=== PATIENT | male | born 2000 ===

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

== ENCOUNTER 2023-02-06 05:39 | Emergency (ER) | payer OTHER, SELFPAY ==
--- NOTE | ~2023-02-06 | XR_ITS ---
EXAMINATION: XR CHEST CLINICAL INFORMATION: Shortness of breath COMPARISON: 01/05/2021 TECHNIQUE: 2 views of the chest were obtained. FINDINGS: Normal symmetric lung volumes. No parenchymal consolidation. No pleural effusion. No pneumothorax. Cardiomediastinal silhouette and pulmonary vascularity are within normal limits. No acute osseous abnormalities. XR/XR chest 2V IMPRESSION: No acute findings.
[2023-02-06 06:05] VITALS: BP 127/70; PULSE 101; RESP 12; TEMP 36.8; O2SAT 98; BMI 23.0
[2023-02-06 06:08] LABS: MANUAL DIFF FLAG NO
[2023-02-06 06:09] LABS: Basophils Absolute Auto 0.1 X10*3/uL (0.0-0.2); Basophils Percent Auto 0.5 % (0-2); Eosinophils Percent Auto 0.3 % (0-4); Hematocrit 45.9 % (42.0-52.0); Hemoglobin 15.8 g/dl (14.0-18.0); Imm Gran Abs Auto 0.07 X10*3/uL (0.00-0.03); Imm Gran Pct Auto 0.6 % (0.0-0.4); Lymphocytes Absolute Auto 1.4 X10*3/uL (1.2-4.9); Lymphocytes Percent Auto 10.8 % (20-40); Mean Corpuscular HGB Conc 34.4 g/dl (31.0-36.0); Mean Corpuscular Hemoglobin 28.2 pg (27.0-33.0); Mean Corpuscular Volume 81.8 fL (80.0-98.0); Mean Platelet Volume 9.4 fL (9.4-12.4); Monocytes Absolute Auto 0.6 X10*3/uL (0.1-1.2); Monocytes Percent Auto 5.1 % (2-11); Neutrophils Absolute Auto 10.4 x10*3/uL (2.0-8.3); Neutrophils Percent Auto 82.7 % (45-73); Platelet Count 384 X10*3/uL (160-400); Red Blood Count 5.61 X10*6/uL (4.60-5.80); Red Cell Distribution Width 12.4 % (11.0-16.0); White Blood Count 12.6 X10*3/uL (4.8-10.8)
--- OUTSIDE RECORDS SUMMARY | 2023-02-06 06:17 | XMS_ITS | Continuity of Care Document ---
:2000 Author Organization [facility] Pediatric Surgery Address [address] [address] [place] [address]- Care Team Providers Name Role Phone Todd HIDALGO, Nena Sharma Primary Care Physician Encounter [facility] [place] Date(s): 05/15/22 - 05/22/22 [facility] Pediatric Surgery [address] [place] [address] [address] [place], [place] [address] Attending Physician: Jerzy FRYE, Oren Montalvo Referring Physician: Alecia Morales MD Allergies, Adverse Reactions, Alerts No Known Allergies Medications clindamycin 1% topical swab 1 applicator, Topically, 2 times a day, apply a thin film to affected area after washing, # 60 each,3 Refills, Maintenance, 05/15/22 16:35:00 EDT, [facility], Partial fill upon patient request if the prescription is for a schedule II op... Start Date: 05/15/22 Stop Date: 09/12/22 Status: OrderedMultivitamin Daily, 0 Refills, Maintenance, 08/15/17 9:16:59 Start Date: 08/15/17 Status: OrderedQvar 40 mcg/inh inhalation aerosol Inhalation, 2 times a day, Refills 0, Maintenance, 11/28/17 9:30:08 Start Date: 11/28/17 Status: OrderedSingulair By Mouth, Daily, 0 Refills, Maintenance, 11/28/17 9:30:18 Start Date: 11/28/17 Status: OrderedVitamin K1 0 Refills, Maintenance, 05/20/18 14:49:23 EDT Start Date: 05/20/18 Status: Ordered Vital Signs Most recent to oldest [Reference Range]: 1 Height 164 cm (05/15/22 3:42 PM) Weight 68.8 kg (05/15/22 3:42 PM) Body Mass Index [18.5-24.99] 25.58 *H* (05/15/22 3:42 PM) Dry Weight 68.8 kg (05/15/22 3:42 PM) Weight Obtained Via Standing scale (05/15/22 3:42 PM) Dry Weight Obtained Via Standing scale (05/15/22 3:42 PM) Social History Social History Type Response Smoking Status Never smoker; Tobacco user i n household: No entered on: 08/15/17 Sex
--- OUTSIDE RECORDS SUMMARY | 2023-02-06 06:17 | XMS_ITS | Continuity of Care Document ---
:2000 Author Organization [facility] Pediatric Surgery Address [address] [facility] [address] [place] [address]- Care Team Providers Name Role Phone Nena Valente Primary Care Physician Encounter [facility] Date(s): 05/15/22 - 06/14/22 [facility] Pediatric Surgery [address] [facility] [address] [place] [address]- Attending Physician: Dahiana Hill Admitting Physician: AdmtrDahiana Referring Physician: Admtr Ar8 Allergies, Adverse Reactions, Alerts No Known Allergies [...] 14:49:23 EDT Start Date: 05/20/18 Status: Ordered Social History Social History Type Response Smoking Status Never smoker; Tobacco user i n household: No entered on: 08/15/17 Sex
[2023-02-06 06:24] LABS: Alanine Aminotransferase 43 U/L (0-40); Alkaline Phosphatase 104 U/L (39-117); Anion Gap 14 (12-20); Aspartate Amino Transferase 30 U/L (5-37); Bilirubin Total 0.8 mg/dL (0.0-1.0); Blood Urea Nitrogen 10 mg/dL (9-16); Calcium 9.7 mg/dL (8.4-10.2); Carbon Dioxide 24 mmol/L (22-29); Chloride 106 mmol/L (96-108); Creatinine Clr Calc Pharmacy 101.9; Estimated Glomerular Filt Rate > 60; Glucose Random 131 mg/dL (60-115); Potassium 4.3 mmol/L (3.3-5.1); Sodium 140 mmol/L (135-145); Total Protein 8.4 g/dL (6.5-8.0)
[2023-02-06 06:53] LABS: Influenza A PCR NEGATIVE (Negative); Influenza B PCR NEGATIVE (Negative); Resp Syncy Virus RNA Qual PCR NEGATIVE (Negative); SARS COV2 PCR INHOUSE NEGATIVE (Negative)
--- NOTE | 2023-02-06 07:13 | ED.ASTHMA ---
HPI - Asthma General Chief Complaint: Asthma Stated Complaint: Asthma Time Seen by Provider: 02/06/23 06:53 Source: patient and family (Mother) Mode of arrival: ambulatory Limitations: no limitations History of Present Illness HPI Narrative: 22-year-old male with history of asthma came in for 2 days of wheezing and coughing with shortness of breath. Patient took10 mg tab tablet of prednisone left over at home but patient feels partial improvement. Patient is around animals that the patient think is allergic to them. No CP, no hypoxia. Related Data Previous Rx's Medication Instructions Recorded acetaminophen 325 mg tablet 650 mg PO Q6H PRN fever or pain 09/14/20 (Tylenol) #10 tabs albuterol sulfate 2.5 mg/3 mL 2.5 mg (3 mL) inhalation Q4-6H PRN 01/05/21 (0.083 %) solution for nebulization shortness of breath or wheezing #75 mL montelukast 10 mg tablet 10 mg PO DAILY 30 days #30 tabs 01/09/22 (Singulair) cyclobenzaprine 5 mg tablet 5 mg PO Q8H PRN muscle spasm #10 04/17/22 tabs naproxen 375 mg tablet 375 mg PO BID 7 days #14 tabs 04/17/22 albuterol sulfate 90 mcg/actuation 2 puff PO Q4-6H PRN for wheezing 11/28/22 aerosol inhaler (ProAir HFA) #8.5 grams fluticasone propionate 110 2 puff inhalation DAILY 30 days 11/28/22 mcg/actuation HFA aerosol inhaler #12 grams albuterol sulfate 90 mcg/actuation 2 puff inhalation Q4-6H PRN 11/29/22 aerosol inhaler (Ventolin HFA) shortness of breath or wheezing #6.7 grams albuterol sulfate 90 mcg/actuation 2 puff inhalation Q6H PRN 02/06/23 aerosol inhaler shortness of breath or wheezing #8.5 grams prednisone 20 mg tablet 20 mg PO BID #10 tabs 02/06/23 Allergies Allergy/AdvReac Type Severity Reaction Status Date / Time No Known Allergies [NKA] Allergy Unknown NA Verified 04/17/22 10:55 Review of Systems Review of Systems: All other systems are reviewed and are negative Constitutional: Reports as per HPI and Reports no additional constitutional complaints Eyes: Reports as per HPI and Reports no additional eye complaints Reports system reviewed and no additional complaints, except as documented Cardiovascular: Reports as per HPI and Reports no additional cardiovascular complaints Respiratory: Reports as per HPI and Reports no additional respiratory complaints Gastrointestinal: Reports as per HPI and Reports no additional gastrointestinal complaints Genitourinary: Reports no additional female genitourinary complaints Musculoskeletal: Reports no additional musculoskeletal complaints Skin/Breast: Reports system reviewed and no additional complaints, except as docu Psychiatric: Reports no additional psychiatric complaints Endocrine: Reports no additional endocrine complaints Hematologic/Lymphatic: Reports no additional hematologic/lymphatic complaints Allergic/Immunologic: Reports no additional allergic/immunologic complaints Reports system reviewed and no additional complaints, except as documented and Reports Abnormal speech present [facility] Past Medical History Medical History Asthma Lab test positive for detection of COVID-19 virus Tourette syndrome Surgical History No pertinent past surgical history Family History Family History Father Asthma GERD (gastroesophageal reflux disease) Mother Asthma Anxiety Social History Social History Household Members: Family Advance Directives: No Physical Exam Vital Signs: Vital Signs: Last Vital Signs Temp 98 F 02/06/23 07:51 Pulse 144 H 02/06/23 07:51 Resp 20 02/06/23 07:51 BP 137/69 02/06/23 07:51 Pulse Ox 100 02/06/23 07:51 O2 Del Method 02/06/23 07:51 BMI result Body Mass Index 23.0 Vital signs have been reviewed as appeared to be correct. Blood pressure normal. Heart rate normal. Respiration rate normal. Temperature normal. Oxygen saturation normal. Appearance: Alert. Oriented X3. No acute distress. Head: Normal external exam. Normocephalic. Atraumatic. No Aviles signs noted. No raccoon eyes noted Eyes: PERRLA. EOMI. Conjunctiva and sclera normal. Eyelids normal. ENT: TM's Normal. Pharynx normal. Uvula midline. Moist mucous membranes. No trismus noted. No drooling noted. No muffled voice noted. Neck: Normal inspection. Neck supple. FROM. No adenopathy. Thyroid Normal. No meningeal signs. No neck mass noted. CVS: Normal heart rate and rhythm. Heart sound normal. No murmurs noted. Pulses normal throughout. Respiratory: No respiratory distress. Painless inspiration. Breath sounds normal. No wheezes/rales/rhonchi noted. Chest nontender. No accessory muscle usage noted or decreased air movement noted. Abdomen: Soft and nontender. Bowel sounds normal in all 4 quadrants. No distention noted. No organomegaly noted. No visible injury noted. Back: No CVA tenderness. Full range of motion noted. Skin: Skin warm and dry. Normal skin color. Normal skin turgor. No rashes/lesions/lacerations noted. Extremities: No lower extremity edema. Extremities exhibit normal range of motion. Extremities nontender. Neuro: Oriented X 3. Cranial nerve exam: II-XII are grossly intact No motor deficit. No sensory deficit. Reflexes normal. Course Course Course Narrative: Acute asthma exacerbation. Start the patient on bronchodilator and prednisone for 5 days, patient was instructed to observe himself if the symptoms is worsening after exposure to animal at home to avoid exposing to the side animal patient also was instructed to follow up with tracer clerk as an outpatient. Medications Administered Discontinued Medications Generic Name Dose Route Start Last Admin Trade Name Freq PRN Reason Stop Dose Admin Albuterol Sulfate 7.5 mg 02/06/23 07:11 02/06/23 07:31 Albuterol Sulfate (0.083%) 2.5 Mg/3 Ml Vial.Neb INHALE 02/06/23 07:12 7.5 mg ONCE ONE Administration Prednisone 40 mg 02/06/23 07:11 02/06/23 07:31 Prednisone 20 Mg Tablet PO 02/06/23 07:12 40 mg ONCE ONE Administration Medical Decision Making Differential Diagnosis Differential Diagnoses: The differential diagnosis associated with the presentation includes (Acute asthma exacerbation, pneumonia, pneumothorax, viral upper respiratory infection.) Lab Data MDM Lab Attestation statement: I reviewed the patient's lab results. 02/06/23 06:02 02/06/23 06:02 Labs: Lab Results 02/06/23 02/06/23 02/06/23 Range/Units 06:02 06:02 06:12 WBC 12.6 H (4.8-10.8) X10*3/uL RBC 5.61 (4.60-5.80) X10*6/uL Hgb 15.8 (14.0-18.0) g/dl Hct 45.9 (42.0-52.0) % MCV 81.8 (80.0-98.0) fL MCH 28.2 (27.0-33.0) pg MCHC 34.4 (31.0-36.0) g/dl RDW 12.4 (11.0-16.0) % Plt Count 384 (160-400) X10*3/uL MPV 9.4 (9.4-12.4) fL Immature Gran % (Auto) 0.6 H (0.0-0.4) % Neut % (Auto) 82.7 H (45-73) % Lymph % (Auto) 10.8 L (20-40) % [place] % (Auto) 5.1 (2-11) % Eos % (Auto) 0.3 (0-4) % Baso % (Auto) 0.5 (0-2) % Lymph # (Auto) 1.4 (1.2-4.9) X10*3/uL [place] # (Auto) 0.6 (0.1-1.2) X10*3/uL Eos # (Auto) 0.0 (0.0-0.4) X10*3/uL Baso # (Auto) 0.1 (0.0-0.2) X10*3/uL Abs Immat Gran (auto) 0.07 H (0.00-0.03) X10*3/uL Absolute Neuts (auto) 10.4 H (2.0-8.3) x10*3/uL Absolute Nucleated RBC 0.000 (0.0-0.012) X10*3/uL Nucleated RBC % (auto) 0.0 (0.0-0.2) /100WBC Sodium 140 (135-145) mmol/L Potassium 4.3 (3.3-5.1) mmol/L Chloride 106 (96-108) mmol/L Carbon Dioxide 24 (22-29) mmol/L Anion Gap 14 (12-20) BUN 10 (9-16) mg/dL Creatinine 0.93 (0.5-1.4) mg/dL Estim Creat Clear Calc 101.9 Estimated GFR > 60 Random Glucose 131 H (60-115) mg/dL Calcium 9.7 (8.4-10.2) mg/dL Total Bilirubin 0.8 (0.0-1.0) mg/dL AST 30 (5-37) U/L ALT 43 H (0-40) U/L Alkaline Phosphatase 104 (39-117) U/L Total Protein 8.4 H (6.5-8.0) g/dL Albumin 5.0 (3.5-5.0) g/dL Influenza Type A (PCR) NEGATIVE (Negative) Influenza Type B (PCR) NEGATIVE (Negative) RSV RNA Qual (PCR) NEGATIVE (Negative) SARS-CoV-2 RNA (RT-PCR) NEGATIVE (Negative) Independent Interpretation I performed an independent interpretation of an: Plain X-Ray (Chest: No acute intrathoracic pathology.) Radiology Impression Discussion of test interpretation with radiology: I have reviewed the radiologist's reading. Discharge Plan Discharge Clinical Impression: Mild intermittent asthma with (acute) exacerbation Patient Disposition: Home, Self-Care Instructions: Asthma (ED) Prescriptions: New albuterol sulfate 90 mcg/actuation HFA aerosol inhaler 2 puff inhalation Q6H PRN (Reason: shortness of breath or wheezing) Qty: 8.5 0RF prednisone 20 mg tablet 20 mg PO BID Qty: 10 0RF No Action montelukast [Singulair] 10 mg tablet 10 mg PO DAILY 30 Days Qty: 30 3RF albuterol sulfate [ProAir HFA] 90 mcg/actuation HFA aerosol inhaler 2 puff PO Q4-6H PRN (Reason: for wheezing) Qty: 8.5 0RF Rx Instructions: Inhale 2 puffs every 4 to 6 hrs as needed for wheezing or shortness of breath fluticasone propionate 110 mcg/actuation HFA aerosol inhaler 2 puff inhalation DAILY 30 Days Qty: 12 5RF albuterol sulfate [Ventolin HFA] 90 mcg/actuation HFA aerosol inhaler 2 puff inhalation Q4-6H PRN (Reason: shortness of breath or wheezing) Qty: 6.7 0RF acetaminophen [Tylenol] 325 mg tablet 650 mg PO Q6H PRN (Reason: fever or pain) Qty: 10 0RF albuterol sulfate 2.5 mg /3 mL (0.083 %) solution for nebulization 2.5 mg inhalation Q4-6H PRN (Reason: shortness of breath or wheezing) Qty: 75 0RF naproxen 375 mg tablet 375 mg PO BID 7 Days Qty: 14 0RF cyclobenzaprine 5 mg tablet 5 mg PO Q8H PRN (Reason: muscle spasm) Qty: 10 0RF Rx Instructions: can take 2 tabs if needed for effect. Max dose 10 mg q8 hrs Stand Alone Forms: Work/School Release
[2023-02-06] MEDS: Albuterol Sulfate (0.083%) 2.5 MG/3 ML VIAL.NEB 7.5 MG INHALE (07:31)
[2023-02-06] MEDS: predniSONE 20 MG TABLET 40 MG PO (07:31)
[2023-02-06 07:51] VITALS: BP 137/69; PULSE 144; RESP 20; TEMP 36.6; O2SAT 100
--- NOTE | 2023-02-06 07:54 | MHC.EDTECH ---
PT RECEIVING BREATHING TREATMENT WHEN HEART RATE INCREASED TO 170 . PT BECAME ANXIOUS , REFUSED TO COMPLETE TREATMENT. PT NAUSEOUS VOMITED SMALL AMOUNT OF THICK CLEAR SECRETION. AND RN AWARE. RESPIRATORY AT BEDSIDE.
[2023-02-06 09:23] VITALS: BP 123/66; PULSE 125; RESP 16; TEMP 37.4; O2SAT 98
== END 2023-02-06 09:28 | disposition home or self-care (01) ==
PROVIDERS: Emergency Provider Emergency Medicine
DX: J45.21 Mild intermittent asthma with (acute) exacerbation (principal); Z20.822 Contact with and (suspected) exposure to COVID-19; Z20.828 Contact with and (suspected) exposure to other viral communicable diseases
CPT/HCPCS: 0241U; 36415; 71046; 80053; 85025; 99284

== ENCOUNTER → 2023-05-28 13:42 | Outpatient (BNVA) | payer OTHER, SELFPAY | PROVIDERS: PCP Nurse Practitioner Family; Visit Provider Internal Medicine | DX: Z77.21 Contact with and (suspected) exposure to potentially hazardous body fluids (principal) | CPT/HCPCS: 36415; 84450; 84460; 86706; 86803; 87389; 99203 ==

== ENCOUNTER 2023-06-08 05:57 | Outpatient (REF) | payer OTHER, SELFPAY ==
[2023-06-08 07:23] LABS: Hemoglobin 16.4 g/dl (14.0-18.0); Mean Corpuscular HGB Conc 34.2 g/dl (31.0-36.0); Mean Corpuscular Hemoglobin 28.4 pg (27.0-33.0); Platelet Count 384 X10*3/uL (160-400); Red Blood Count 5.78 X10*6/uL (4.60-5.80); Red Cell Distribution Width 12.9 % (11.0-16.0); White Blood Count 9.4 X10*3/uL (4.8-10.8)
[2023-06-08 07:55] LABS: Alanine Aminotransferase 33 U/L (0-40); Albumin Level 4.8 g/dL (3.5-5.0); Alkaline Phosphatase 83 U/L (39-117); Anion Gap 16 (12-20); Aspartate Amino Transferase 27 U/L (5-37); Bilirubin Total 1.6 mg/dL (0.0-1.0); Blood Urea Nitrogen 14 mg/dL (9-16); Calcium 10.4 mg/dL (8.4-10.2); Carbon Dioxide 22 mmol/L (22-29); Chloride 106 mmol/L (96-108); Cholesterol 147 mg/dL; Estimated Glomerular Filt Rate > 60; Glucose Fasting 82 mg/dL (60-99); HDL Cholesterol 48 mg/dL; LDL Cholesterol Calculated 90 mg/dl; Sodium 140 mmol/L (135-145); Triglycerides 48 mg/dL
[2023-06-08 08:07] LABS: TSH reflex Free T4 1.98 uIU/mL (0.32-4.0)
== END 2023-06-08 05:58 | disposition home or self-care (01) ==
LOC: HO.LAB 05:57
PROVIDERS: PCP Nurse Practitioner Family; Visit Provider Nurse Practitioner Family
DX: Z00.00 Encounter for general adult medical examination without abnormal findings (principal)
CPT/HCPCS: 36415; 80053; 80061; 84443; 85027

== ENCOUNTER 2023-06-08 13:14 | Outpatient (AMB) | payer OTHER, SELFPAY ==
--- NOTE | 2023-06-08 13:21 | MHC.PC.OV ---
Vital Signs 06/08/23 13:22 Height 5 ft 3 in Weight 158 lb 4 oz BMI 28.0 BP 122/72 Blood Pressure Location Lt brachial Position Sitting Respiration 16 Pulse 81 Pulse Source Pulse Oximeter Temp 98.5 F Temp Source Oral Pulse Oximetry (%) 98 Oxygen Delivery Method Room Air Intake Visit Reasons: Lightheadedness, FU on asthma Intake Note: Patient is here for lightheadedness and asthma. Allergies seafood Allergy (Mild, Verified 06/08/23 13:45) mikld tongue swelling, numbness nuts Allergy (Mild, Uncoded 06/08/23 13:45) mild tongue swelling, numbness Medication List - Last Reconciled 06/08/23 by Jozef Salgado CNP acetaminophen (Tylenol) 650 mg (2 x 325 mg) PO Q6H PRN albuterol sulfate 2.5 mg (3 mL) inhalation Q4-6H PRN albuterol sulfate 90 mcg/actuation 2 puffs inhalation Q6H PRN albuterol sulfate 90 mcg/actuation (Ventolin HFA) 2 puffs inhalation Q4-6H PRN fluticasone propionate 110 mcg/actuation 2 puffs inhalation DAILY 30 days montelukast (Singulair) 10 mg PO DAILY 30 days Tobacco use date assessed: 06/08/23 Dental Screening Dental Screen Date: 06/08/23 Did you have a dental visit in the last 12 months?: No Did you have a dental problem in the last 6 months where you did not have access to dental care?: No Was dental information given to patient?: No HPI HPI Comments History of Present Illness Details 22-year-old male presents for asthma follow-up. He c/o lightheadedness. He notes that his symptoms have been ongoing for the past 5 days. His symptoms are intermittent, independent of position changes. His symptoms worsen at home and improve at work, when his is talking with his coworkers. He states that his symptoms maybe attributed to anxiety. He admits to feeling anxious recently. He denies depression. He denies headaches or head trauma. He reports control asthma symptoms. 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 1. Little interest or pleasure in doing things: several days 2. Feeling down, depressed, or hopeless: several days 3. Trouble falling or staying asleep, or sleeping too much: not at all 4. Feeling tired or having little energy: several days 5. Poor appetite or overeating: not at all 6. Feeling bad about yourself - or that you are a failure or have let yourself or your family down: not at all 7. Trouble concentrating on things, such as reading the newspaper or watching television: several days 8. Moving or speaking so slowly that other people could have noticed. Or the opposite - being so fidgety or restless that you have been moving around a lot more than usual: not at all 9. Thoughts that you would be better off or of hurting yourself in some way: not at all Total score: 4 Depression Screening Interpretation: Negative Source: Developed by Drs. Marciano Yoder, Henrietta Brooks, Héctor Stinson and colleagues, with an educational jayme from [employer]. DEIRDRE-7 AMB Questionnaire DEIRDRE-7 Feeling nervous, anxious, or on edge: 1 = Several days Not being able to stop or control worryin = Several days Worrying too much about different things: 1 = Several days Trouble relaxin = Several days Being so restless that it is hard to sit still: 1 = Several days Becoming easily annoyed or irritable: 1 = Several days Feeling afraid as if something awful might happen: 1 = Several days Total DEIRDRE-7 score (0-4 normal; 5-9 mild; 10-14 moderate; 15-21 severe): 7 Source: Developed by Drs. Marciano Yoder, Henrietta Brooks, Héctor Stinson and colleagues, with an educational jayme from [employer]. ACT Questionnaire In the past 4 weeks, how much of the time did your asthma keep you from getting as much done at work, school or at home?: None of the time During the past 4 weeks, how often have you had shortness of breath?: Not at all During the past 4 weeks, how often did your asthma symptoms wake you up at night or earlier than usual in the morning?: Not at all During the past 4 weeks, how often have you had to use your rescue inhaler or nebulizer medication?: Once a week or less How would you rate your asthma control during the past 4 weeks?: Completely controlled Score: 24 Review of Systems Const Details: Const Denies chills, Denies fatigue, Denies fever(s), Denies headache(s) and Denies weakness ENT Denies dizziness and Denies headache(s) Card Denies chest pain, Denies lightheadedness, Denies dyspnea and Denies other (Palpitations) Resp Denies cough, Denies dyspnea, Denies wheezing and Denies other ( shortness of breath) GI Denies abdominal pain, Denies melena, Denies hematochezia, Denies change in bowel habits, Denies dyspepsia and Denies nausea Denies hematuria and Denies dysuria Musc Denies abnormal gait, Denies myalgias, Denies arthralgias, Denies numbness and Denies tingling Skin/Breast Denies rash, Denies unusual bruising and Denies wounds Neuro Denies abnormal gait, Denies dizziness, Denies headache(s), Denies memory loss, Denies numbness, Denies Sensory deficit (Neuro), Denies tingling and Denies weakness Psych Reports anxiety and Denies depression Endo Denies cold intolerance, Denies fatigue, Denies heat intolerance, Denies polydipsia and Denies polyuria Aller/Immun Denies wheezing Physical exam (Primary Care) Vital Signs: Last Vital Signs Temp 98.5 F 06/08/23 13:22 Pulse 81 06/08/23 13:22 Resp 16 06/08/23 13:22 BP 122/72 06/08/23 13:22 Pulse Ox 98 06/08/23 13:22 Oxygen Delivery Method Room Air 06/08/23 13:22 BMI result Body Mass Index 28.0 Tobacco/Smoking Status: Tobacco use Status Tobacco use date assessed 06/08/23 06/08/23 13:29 Patient Tobacco Use Status Former Tobacco user 06/08/23 13:22 e-Cigarette/Vaping Use Never Used 06/08/23 13:22 Depression Screening Interpretation: Negative Const Other: General: no acute distress and well developed Nutritional Appearance: well nourished Orientation/consciousness: patient oriented x3 HENMT Head: Yes normocephalic and Yes atraumatic Eyes General: appearance normal, both eyes and all related structures Pupils: Equal, round and reactive pupils present EOM: EOMs intact bilaterally Resp Effort & Inspection: normal respiratory effort Auscultation: clear to auscultation bilaterally Cardio Rate: regular rate Rhythm: regular rhythm Heart sounds: S1 normal heart sound present, S2 normal heart sound present, no gallops, no murmurs and no rubs GI Palpation (GI): No Abdominal aortic bruit present, Soft to palpation, nontender, No hepatosplenomegaly present and No Rebound tenderness present Auscultation: normal bowel sounds General: Yes no CVA tenderness Back/Spine/Pelvis Back: no CVA tenderness Cervical Spine: cervical ROM normal and No Cervical spine tenderness Thoracic/Lumbar Spine: thoraco-lumbar ROM normal, No pain with thoraco-lumbar ROM, No thoracic spinal tenderness and No lumbar spinal tenderness Extrem General: Yes normal to inspection, No edema and No calf tenderness Skin General: warm and dry. Normal skin color. Normal skin turgor Lesions: no lesions Rashes: no rashes Trauma: no lacerations or abrasions Wounds: no wounds Nails: normal Neuro General: patient oriented x3, gait normal and no focal neuro deficit Cranial nerves: Yes Equal, round and reactive pupils present Cognition (Neuro): normal cognition Gait exam (Neuro): Normal gait present Motor exam (neuro): 5/5 motor strength present throughout Sensory Exam: No Sensory deficit (Neuro) Psych Appearance: grossly normal Affect: normal affect Attitude: cooperative Thought process: Normal thought process present Assessment and Plan Assessment & Plan (1) Anxiety: Code(s): F41.9 - Anxiety disorder, unspecified Plan: Normal physical exam No focal neuro deficit DEIRDRE-7 score revealed mild anxiety. PHQ-9 score is normal He symptoms may be attributed to anxiety Hydroxyzine ordered. Take as prescribed Routine exercise encouraged Recent blood work reviewed with patient Follow-up in 1-2 months or return sooner with new or worsening symptoms Verbalized understanding and agreed with treatment plan. (2) Asthma: Comment: Singulair daily, ProAir prn, albuterol updraft prn. Code(s): J45.909 - Unspecified asthma, uncomplicated Qualifiers: Asthma severity: mild Asthma persistence: intermittent Plan: ACT score is 24 and indicates well controlled asthma Continue use asthma inhalers as prescribed Follow-up with symptoms or concerns Verbalized understanding and agreed with treatment plan Medications: New hydroxyzine HCl 25 mg PO BID PRN 60 tabs 1RF anxety Coding Level of Care Code Est Pt Level 3 (10511) Diagnoses Anxiety F41.9 Asthma J45.909 Asthma severity: mild Asthma persistence: intermittent Time Spent (min) 25
[2023-06-08 13:22] VITALS: BP 122/72; PULSE 81; RESP 16; TEMP 36.9; O2SAT 98; BMI 28.0
== END 2023-06-08 14:02 | disposition home or self-care (01) ==
PROVIDERS: PCP Nurse Practitioner Family; Visit Provider Nurse Practitioner Family
DX: F41.9 Anxiety disorder, unspecified (principal); J45.909 Unspecified asthma, uncomplicated
CPT/HCPCS: 99213

== ENCOUNTER 2023-06-09 13:05 | Emergency (ER) | payer OTHER, SELFPAY ==
[2023-06-09] VITALS (7 sets, daily range): BP systolic 121–141; BP diastolic 62–82; PULSE 83–107; RESP 16–18; TEMP 36.3–37; O2SAT 96–98; BMI 26.6
--- NOTE | 2023-06-09 13:14 | ED_ITS ---
HPI - Dizziness General Chief Complaint: Dizziness Stated Complaint: lightheaded 5days Time Seen by Provider: 06/09/23 19:48 Source: patient, RN notes reviewed and old records reviewed Mode of arrival: ambulatory Limitations: no limitations History of Present Illness HPI Narrative: 22-year-old male who denies any past medical history presents for evaluation of intermittent dizziness. Patient reports that his symptoms started around 4:00 a.m. last Sunday, approximately 1 week ago He reports ?sometimes it feels like the room is spinning, sometimes it feels like I am floating. ? He states that he has had intermittent headaches as well He saw his primary doctor yesterday who did labs, all of which were reassuring He reports that his tend to be worse when he is standing Patient states that currently he is not dizzy and does not have a headache Denies any viral symptoms. He denies any history of vertigo He has no other complaints or concerns at this time Related Data Previous Rx's Medication Instructions Recorded acetaminophen 325 mg tablet 650 mg PO Q6H PRN fever or pain 09/14/20 (Tylenol) #10 tabs albuterol sulfate 2.5 mg/3 mL 2.5 mg (3 mL) inhalation Q4-6H PRN 01/05/21 (0.083 %) solution for nebulization shortness of breath or wheezing #75 mL montelukast 10 mg tablet 10 mg PO DAILY 30 days #30 tabs 01/09/22 (Singulair) fluticasone propionate 110 2 puff inhalation DAILY 30 days 11/28/22 mcg/actuation HFA aerosol inhaler #12 grams albuterol sulfate 90 mcg/actuation 2 puff inhalation Q4-6H PRN 11/29/22 aerosol inhaler (Ventolin HFA) shortness of breath or wheezing #6.7 grams albuterol sulfate 90 mcg/actuation 2 puff inhalation Q6H PRN 03/16/23 aerosol inhaler shortness of breath or wheezing #8.5 grams hydroxyzine HCl 25 mg tablet 25 mg PO BID PRN anxety #60 tabs 06/08/23 Allergies Allergy/AdvReac Type Severity Reaction Status Date / Time seafood Allergy Mild mikld Verified 06/09/23 13:14 tongue swelling, numbness nuts Allergy Mild mild Uncoded 06/08/23 13:45 tongue swelling, numbness Review of Systems Constitutional: Constitutional: Reports as per HPI, Denies chills, Denies fatigue, Denies fever(s) and Reports headache(s) ENT: Reports headache(s) Cardiovascular: Cardiovascular: Denies chest pain and Denies dyspnea Respiratory: Respiratory: Denies cough and Denies dyspnea Gastrointestinal: Gastrointestinal: Denies abdominal pain, Denies constipation and Denies vomiting Genitourinary: Genitourinary: Denies difficulty urinating and Denies dysuria Neurologic: Reports headache(s) and Denies focal weakness Endocrine: Endocrine: Denies fatigue PMFSH Past Medical History Medical History Asthma Lab test positive for detection of COVID-19 virus Tourette syndrome Surgical History No pertinent past surgical history Family History Family History Father Asthma GERD (gastroesophageal reflux disease) Mother Asthma Anxiety Social History Social History Household Members: Family Housing: House Alcohol intake: never Patient Tobacco Use Status: Former Tobacco user Smoked in Last 30 Days: No e-Cigarette/Vaping Use: Never Used Use of substances other than those prescribed or required for medical reasons: No Advance Directives: No Advance Directives Information Provided: Yes service: No Current occupational status: employed 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 Cognitive needs: No Hearing needs: No Vision needs: No Physical Exam Vital Signs: Vital Signs: Last Vital Signs Temp 98.2 F 06/09/23 20:30 Pulse 89 06/09/23 20:30 Resp 16 06/09/23 20:30 BP 135/67 06/09/23 20:30 Pulse Ox 98 06/09/23 20:30 O2 Del Method Room Air 06/09/23 20:30 BMI result Body Mass Index 26.6 Const: General: healthy appearing, comfortable, no acute distress, alert and awake Nutritional Appearance: well nourished Orientation/consciousness: patient oriented x3 HEENT: Head: Yes normocephalic and Yes atraumatic Ears: external ears normal, TM's normal bilaterally and EAC's normal Eyes: Eyelids: Yes eyelids normal Conjunctivae: conjunctivae normal Sclerae: sclerae normal Corneas: corneas normal Pupils: Equal, round and reactive pupils present EOM: EOMs intact bilaterally Neck: Neck: Yes full ROM Resp: Effort & Inspection: normal respiratory effort, able to speak in complete sentences and not labored Cardio: Rate: regular rate Rhythm: regular rhythm GI: Inspection: No distended Palpation (GI): Soft to palpation, not firm, nontender, no guarding and not rigid Auscultation: normoactive bowel sounds Skin: General skin exam: no rashes or lesions noted and elasticity normal Neuro: General: patient oriented x3 Cranial nerves: Yes Equal, round and reactive pupils present and Yes Bilaterally intact EOM present Cognition (Neuro): normal cognition Course Course Course Narrative: RME - 22 yo male with history of asthma, anxiety, optic neuritis who presents to the ER for evaluation of lightheadedness for the last 5 days. He states his symptoms come and go. [place] like he was going to pass out 3x time week. Poor historian. Mom reports daily headaches. Seen by his PCP yesterday and had basic labs which were largely unremarkable. Plan: EKG for presyncope, orthostatic VS. no need to repeat labs today Reevaluation(s) Reevaluation #1: Patient reports no significant change after meclizine reports that he feels well. He is stable for discharge Time: 20:44 Medications Administered Discontinued Medications Generic Name Dose Route Start Last Admin Trade Name Freq PRN Reason Stop Dose Admin Meclizine HCl 25 mg 06/09/23 20:14 06/09/23 20:20 Meclizine Hcl 25 Mg Tablet PO 06/09/23 20:15 25 mg ONCE ONE Administration Medical Decision Making Medical Decision Making [facility] Narrative: 22-year-old male presents for evaluation of lightheadedness/dizziness. His exam is reassuring. He has no objective findings. Currently he is also asymptomatic. Patient is not orthostatic. He had labs that were done yesterday morning. Hemoglobin of 16.4 with hematocrit of 48.0. A white count of 9.4. The no significant electrolyte abnormalities. Patient was given a dose of meclizine. Differential Diagnosis Differential Diagnoses: The differential diagnosis associated with the presentation includes (VertigoDizzinessLightheadedness Meniere's disease Orthostasis labyrinthitis) Discharge Plan Discharge Clinical Impression: Dizziness Patient Disposition: Home, Self-Care Instructions: Dizziness (ED) Additional Instructions: Your blood work from yesterday was reassuring. Your neuro exam was also reassuring. You are not dehydrated. You EKG did not show any concerning abnormalities Follow-up with your primary doctor and your home administrator as discussed Prescriptions: No Action montelukast [Singulair] 10 mg tablet 10 mg PO DAILY 30 Days Qty: 30 3RF fluticasone propionate 110 mcg/actuation HFA aerosol inhaler 2 puff inhalation DAILY 30 Days Qty: 12 5RF albuterol sulfate [Ventolin HFA] 90 mcg/actuation HFA aerosol inhaler 2 puff inhalation Q4-6H PRN (Reason: shortness of breath or wheezing) Qty: 6.7 0RF albuterol sulfate 90 mcg/actuation HFA aerosol inhaler 2 puff inhalation Q6H PRN (Reason: shortness of breath or wheezing) Qty: 8.5 3RF acetaminophen [Tylenol] 325 mg tablet 650 mg PO Q6H PRN (Reason: fever or pain) Qty: 10 0RF albuterol sulfate 2.5 mg /3 mL (0.083 %) solution for nebulization 2.5 mg inhalation Q4-6H PRN (Reason: shortness of breath or wheezing) Qty: 75 0RF hydroxyzine HCl 25 mg tablet 25 mg PO BID PRN (Reason: anxety) Qty: 60 1RF
--- NOTE | 2023-06-09 13:18 | ECG_ITS ---
Test Reason : PRESYNCOPE Blood Pressure : / mmHG Vent. Rate : 104 BPM Atrial Rate : 104 BPM P-R Int : 130 ms QRS Dur : 100 ms QT Int : 334 ms P-R-T Axes : 063 054 -12 degrees QTc Int : 439 ms Sinus tachycardia Nonspecific T wave abnormality Abnormal ECG No previous ECGs available Referred By: Tierney Chow Electronically Signed By:ERVIN ALEJANDRE MD
[2023-06-09] MEDS: Meclizine HCl 25 MG TABLET PO (20:20)
== END 2023-06-09 20:54 | disposition home or self-care (01) ==
PROVIDERS: Emergency Provider Emergency Medicine; PCP Nurse Practitioner Family
DX: R42 Dizziness and giddiness (principal)
CPT/HCPCS: 93005; 99283; 99285

== ENCOUNTER → 2023-06-09 13:18 | Outpatient (BNV) | payer OTHER, SELFPAY | PROVIDERS: Emergency Provider Emergency Medicine; PCP Nurse Practitioner Family; Visit Provider Internal Medicine Cardiovascular Disease | DX: R00.0 Tachycardia, unspecified (principal) | CPT/HCPCS: 93010 ==

== ENCOUNTER → 2023-07-26 15:05 | Outpatient (BNVA) | payer OTHER, SELFPAY | PROVIDERS: PCP Nurse Practitioner Family | DX: Z77.21 Contact with and (suspected) exposure to potentially hazardous body fluids (principal) | CPT/HCPCS: 99211 ==

== ENCOUNTER 2023-08-27 12:38 | Outpatient (AMB) | payer OTHER, SELFPAY ==
--- NOTE | 2023-08-27 12:46 | A.OFFPC_ITS ---
Vital Signs 08/27/23 12:49 Height 5 ft 3 in Weight 139 lb 6 oz BMI 24.7 BP 110/68 Blood Pressure Location Lt brachial Position Sitting Pulse 91 Pulse Source Pulse Oximeter Pulse Oximetry (%) 98 Oxygen Delivery Method Room Air Intake Visit Reasons: transfer of care from [facility] Intake Note: Patient is here today for transfer of care from [facility]. 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: No Bowling Pin Refinisher: Not Required per policy Accompanied by: Self / Same As Patient Allergies seafood Allergy (Mild, Verified 08/27/23 13:08) mikld tongue swelling, numbness nuts Allergy (Mild, Uncoded 08/27/23 12:49) mild tongue swelling, numbness Medication List - Last Reconciled 08/27/23 by ELIZABETH Copeland acetaminophen (Tylenol) 650 mg (2 x 325 mg) PO Q6H PRN albuterol sulfate 2.5 mg (3 mL) inhalation Q4-6H PRN albuterol sulfate 90 mcg/actuation 2 puffs inhalation Q6H PRN fluticasone propionate 110 mcg/actuation 2 puffs inhalation DAILY 30 days hydroxyzine HCl 25 mg PO BID PRN Tobacco use date assessed: 08/27/23 Dental Screening Dental Screen Date: 08/27/23 Did you have a dental visit in the last 12 months?: Yes Did you have a dental problem in the last 6 months where you did not have access to dental care?: No Was dental information given to patient?: Patient has dentist HPI HPI Comments History of Present Illness Details 22-year-old male past history significan t for anxiety and asthma. Patient presents today for transfer care from Dr. Lion. Patient currently albuterol inhaler as needed, singular 10 mg daily as as fluticasone 2 puffs daily. Patient taking hydroxyzine b.i.d. as needed for anxiety, patient reports he does not use the hydroxyzine. offered referral to counseling however patient declines. Patient reports chest pain like pressure throughout the chest sometimes left sided sometimes on the right side. Patient denies any nausea,vomitting or sweating associated witht he CP but reports It feels like his heart is working harder than it should denies palpitations, dizziness. Of not was in ER in May for lightheadedness x [address], non-specific Twave abnormality Date reports chest pain pressure or pain throughout the chest intermittently last upper left or right chest. fells like heart is working harder. Doesn't feel like his anxiety. No nausea, vomitting. Of note patient also reports has history of Tourette syndrome and that he does have a tick for where he has a head motion that he does which causes him to tighten up his chest muscles. Chest discomfort likely musculoskeletal related. Patient advise can take [id number] ibuprofen as needed for pain. EKG in completed in office showed normal sinus rhythm, no changes noted from previous EKG obtained in May. Dr. Daigle reviewed EKG with this MARKETING ASSISTANT. [facility] Medical History Lab test positive for detection of COVID-19 virus Asthma Tourette syndrome Surgical History No pertinent past surgical history Family History Father Asthma GERD (gastroesophageal reflux disease) Mother Asthma Anxiety Other Mental health disorder Social History (Updated 08/27/23 @ 13:11 by ELIZABETH Copeland) Household Members: Family Housing: House Alcohol intake: current Alcohol intake frequency: holidays/special occasions only Patient Tobacco Use Status: Never used Tobacco e-Cigarette/Vaping Use: Never Used Second Hand Smoke Exposure: No Use of substances other than those prescribed or required for medical reasons: No service: No Current occupational status: employed 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 Marciano Yoder, Henrietta Brooks, Héctor Stinson and colleagues, with an educational jayme from [employer]. Review of Systems Const Denies chills, Denies fatigue, Denies fever(s) and Denies poor appetite Eyes Denies no additional complaints ENT Reports Normal hearing present Card Denies chest pain, Denies syncope, Denies rapid heart rate and Denies dyspnea Resp Denies cough and Denies dyspnea GI Denies change in stool character, Denies constipation, Denies diarrhea, Denies nausea and Denies vomiting Denies dysuria, Denies urinary frequency and Denies urinary urgency Neuro Reports Normal hearing present, Denies confusion and Denies syncope Psych Denies confusion Endo Denies fatigue Physical exam (Primary Care) Vital Signs: Last Vital Signs Pulse 91 08/27/23 12:49 BP 110/68 08/27/23 12:49 Pulse Ox 98 08/27/23 12:49 Oxygen Delivery Method Room Air 08/27/23 12:49 BMI result Body Mass Index 24.7 Tobacco/Smoking Status: Tobacco use Status Tobacco use date assessed 08/27/23 08/27/23 12:56 Patient Tobacco Use Status Never used Tobacco 08/27/23 13:11 e-Cigarette/Vaping Use Never Used 08/27/23 13:11 Thrive Assessment: Date of Thrive Assessment Date Thrive assessed 02/12/23 08/27/23 12:56 Const General: No confusion Orientation/consciousness: No confusion HENMT Head: Yes normocephalic and Yes atraumatic Eyes Conjunctivae: conjunctivae normal Chest Chest palpation & inspection: normal inspection of the chest Resp Effort & Inspection: normal respiratory effort Auscultation: clear to auscultation bilaterally, no crackles, no rhonchi and no wheezes Cardio Rate: regular rate Rhythm: regular rhythm Heart sounds: S1 normal heart sound present and S2 normal heart sound present Peripheral pulses: dorsalis pedis present GI Inspection: Yes normal to inspection General: Yes no CVA tenderness Back/Spine/Pelvis Back: no CVA tenderness Neuro General: No confusion Cranial nerves: Yes Normal hearing present Extrem General: No edema Office Procedures Flu Questionnaire Does the patient have a severe egg allergy?: No Does the patient have severe life threatening allergies?: No Does the patient have a fever or illness today?: No Has the patient ever had Guillain-[place] Syndrome?: No Has the patient ever had any past reaction to a flu shot?: No Immunizations flu vacc [id number] 6mos up(PF) 60 mcg(15 mcgx4)/0.5 mL IM syringe Performing Provider: ELIZABETH oCpeland Performing Location: [facility] Documented (not given) by: SINGH Montilla on 08/27/23 12:56 Reason Not Given: Patient Refused Assessment and Plan Assessment & Plan (1) Asthma: Comment: Singulair daily, ProAir prn, albuterol updraft prn. Code(s): J45.909 - Unspecified asthma, uncomplicated Qualifiers: Asthma persistence: intermittent Asthma severity: mild Plan: Continue on albuterol as needed. Patient reports has not required albuterol inhaler in over 2 months. Denies any shortness of breath or wheezing. (2) Anxiety: Code(s): F41.9 - Anxiety disorder, unspecified Plan: Can continue use hydroxyzine as needed for anxiety. Offered referral for counseling however patient declines this time. (3) Atypical chest pain: Code(s): R07.89 - Other chest pain Plan: EKG obtained in office showed normal sinus rhythm no EKG changes noted from previous EKG obtained May. Patient reports head motion he does related to his Tourette's syndrome where he tightens up his chest muscle, chest pain possibly musculoskeletal in nature patient advise can take [id number] ibuprofen needed for pain. Signs and symptoms reviewed with patient when to follow-up or seek emergency medical attention. Plan Follow-up in January for complete physical exam. Orders: Orders TSH reflex Free T4 Today Z13.29 - Encounter for screening for other suspected endocrine disorder Influenza [id number] Immunization Today Z23 - Encounter for immunization Comprehensive Met. Panel Today E83.52 - Hypercalcemia Coding Level of Care Code Est Pt Level 3 (55550) Diagnoses Asthma J45.909 Asthma persistence: intermittent Asthma severity: mild Anxiety F41.9 Atypical chest pain R07.89
[2023-08-27 12:49] VITALS: BP 110/68; PULSE 91; O2SAT 98; BMI 24.7
== END 2023-08-27 13:51 | disposition home or self-care (01) ==
PROVIDERS: PCP Nurse Practitioner Family; Visit Provider Nurse Practitioner Family
DX: J45.909 Unspecified asthma, uncomplicated (principal); F41.9 Anxiety disorder, unspecified; R07.89 Other chest pain; Z23 Encounter for immunization
CPT/HCPCS: 90471; 99213

== ENCOUNTER → 2023-10-03 11:22 | Outpatient (BNVA) | payer OTHER, SELFPAY | PROVIDERS: PCP Nurse Practitioner Family | DX: Z77.21 Contact with and (suspected) exposure to potentially hazardous body fluids (principal) | CPT/HCPCS: 99211 ==

== ENCOUNTER 2024-01-07 15:02 | Outpatient (AMB) | payer OTHER, SELFPAY ==
[2024-01-07 15:04] VITALS: BP 118/80; PULSE 68; O2SAT 98; BMI 23.6
--- NOTE | 2024-01-07 15:04 | A.OFFPC_ITS ---
Vital Signs 01/07/24 15:04 Height 5 ft 3 in Weight 133 lb 6 oz BMI 23.6 BP 118/80 Blood Pressure Location Lt brachial Position Sitting Pulse 68 Pulse Source Pulse Oximeter Pulse Oximetry (%) 98 Oxygen Delivery Method Room Air Intake Visit Reasons: Asthma F/U Transfer Of Care From [facility] Assistant Required: No Accompanied by: Self / Same As Patient Allergies seafood Allergy (Mild, Verified 02/07/24 21:24) mild tongue swelling, numbness nuts Allergy (Mild, Uncoded 02/07/24 21:07) mild tongue swelling, numbness Medication List - Last Reconciled 01/07/24 by Rene Olivia MD acetaminophen (Tylenol) 650 mg (2 x 325 mg) PO Q6H PRN albuterol sulfate 2.5 mg (3 mL) inhalation Q4-6H PRN albuterol sulfate 90 mcg/actuation 2 puffs inhalation Q6H PRN fluticasone propionate 110 mcg/actuation 2 puffs inhalation DAILY 30 days hydroxyzine HCl 25 mg PO BID PRN Tobacco use date assessed: 01/07/24 Dental Screening Dental Screen Date: 01/07/24 Did you have a dental visit in the last 12 months?: Yes Did you have a dental problem in the last 6 months where you did not have access to dental care?: No Was dental information given to patient?: Patient has dentist HPI Asthma F/U Transfer Of Care From HPI Details Patient comes in today for his follow up visit; is transferring over from Tierney Lara, who is no longer with the practice Patient states that his asthma has been flaring up often throughout the past month (November 2023) Notes that his asthma has been well-controlled for months now with hardly any flare up until last month but he feels that his asthma is now starting to get back under control Reports that he has been experiencing what he thinks are on and off symptoms related to anxiety since August of last year (2022), as he feels that his anxiety has been getting worse lately States that these symptoms include on and off dizziness, increased fatigue and tachycardia, for which he went to the ER recently to get checked out Recalls being told that his EKG came out okay He denies any headaches Denies any chest pains No nausea/vomiting, no abdominal pain No change in bowel habits noted [facility] Medical History (Updated 02/07/24 @ 21:27 by Rene Olivia MD) Anxiety Lab test positive for detection of COVID-19 virus Asthma Tourette syndrome Surgical History No pertinent past surgical history Family History Father Asthma GERD (gastroesophageal reflux disease) Mother Asthma Anxiety Other Mental health disorder Social History Household Members: Family Housing: House Alcohol intake: current Alcohol intake frequency: holidays/special occasions only Patient Tobacco Use Status: Never used Tobacco e-Cigarette/Vaping Use: Never Used Second Hand Smoke Exposure: No service: No Current occupational status: employed 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 1. Little interest or pleasure in doing things: several days 2. Feeling down, depressed, or hopeless: several days 3. Trouble falling or staying asleep, or sleeping too much: not at all 4. Feeling tired or having little energy: several days 5. Poor appetite or overeating: not at all 6. Feeling bad about yourself - or that you are a failure or have let yourself or your family down: not at all 7. Trouble concentrating on things, such as reading the newspaper or watching television: several days 8. Moving or speaking so slowly that other people could have noticed. Or the opposite - being so fidgety or restless that you have been moving around a lot more than usual: not at all 9. Thoughts that you would be better off or of hurting yourself in some way: not at all Total score: 4 Depression Screening Interpretation: Positive Depression Screening Follow-up: Existing condition and New Medication prescribed Depression Screening Done: Yes 11523 - PHQ-9 Billing: Yes Source: Developed by Drs. Marciano Yoder, Henrietta Brooks, Héctor Stinson and colleagues, with an educational jayme from [employer]. Thrive Questionnaire Date Thrive assessed: 01/07/24 I am a: Patient What is your living situation today?: I have a steady place to live Within the past 12 months, did the food you bought not last and you didn't have the money to get more?: Never true Within the past 12 months, did you worry whether your food would run out before you got money to buy more?: Never true Do you have trouble paying for medicines?: No Do you have trouble getting transportation to medical appointments?: No Do you have trouble paying your heating and electricity bill?: No Do you have trouble taking care of your child, family member or friend?: No Do you have trouble with day-to-day activities such as bathing, preparing meals, shopping, managing finances, etc.?: No Are you currently unemployed and looking for a job?: No Are you interested in more education?: No Please select the resources that you would like help with: None Currently or been in a relationship where the following occur: no concerns reported THRIVE Score: 0 AUDIT C Alcohol Use Questionnaire (AUDIT-C) 1. How often do you have a drink containing alcohol?: Monthly or less 2. How many drinks containing alcohol do you have on a typical day when you are drinking?: 1 or 2 3. How often do you have six or more drinks on one occasion?: Never Total Score: 1 Score Reviewed/Action Taken: Yes DEIRDRE-7 AMB Questionnaire DEIRDRE-7 Date DEIRDRE - 7 assessed: 01/07/24 Feeling nervous, anxious, or on edge: 0 = Not at all Not being able to stop or control worryin = Not at all Worrying too much about different things: 0 = Not at all Trouble relaxin = Not at all Being so restless that it is hard to sit still: 0 = Not at all Becoming easily annoyed or irritable: 0 = Not at all Feeling afraid as if something awful might happen: 0 = Not at all Total DEIRDRE-7 score (0-4 normal; 5-9 mild; 10-14 moderate; 15-21 severe): 0 Source: Developed by Drs. Marciano Yoder, Henrietta Brooks, Héctor Stinson and colleagues, with an educational jayme from [employer]. Review of Systems Const Denies chills, Reports fatigue, Denies fever(s) and Denies headache(s) ENT Denies dysphagia, Reports dizziness (on and off), Denies otalgia, Denies headach e(s), Denies neck pain, Denies odynophagia and Denies sore throat Card Denies chest pain, Reports rapid heart rate (occasionally), Denies palpitations and Denies dyspnea Resp Denies cough and Denies dyspnea GI Denies abdominal pain, Denies constipation, Denies dysphagia, Denies heartburn, Denies diarrhea, Denies nausea, Denies odynophagia and Denies vomiting Denies dysuria, Denies nocturia and Denies urinary frequency Musc Denies back pain and Denies neck pain Skin/Breast Denies rash Neuro Reports dizziness (on and off) and Denies headache(s) Psych Reports anxiety (increasing lately) Endo Reports fatigue and Denies palpitations Physical exam (Primary Care) Vital Signs: Last Vital Signs Pulse 68 01/07/24 15:04 BP 118/80 01/07/24 15:04 Pulse Ox 98 01/07/24 15:04 Oxygen Delivery Method Room Air 01/07/24 15:04 BMI result Body Mass Index 23.6 Tobacco/Smoking Status: Tobacco use Status Tobacco use date assessed 01/07/24 01/07/24 15:06 Patient Tobacco Use Status Never used Tobacco 01/07/24 15:06 e-Cigarette/Vaping Use Never Used 01/07/24 15:06 PHQ-9: PHQ-9 Score PHQ-9: Total score 4 02/07/24 21:37 Depression Screening Interpretation: Positive Depression Screening Follow-up: Existing condition and New Medication prescribed Thrive Assessment: Date of Thrive Assessment Date Thrive assessed 01/07/24 01/07/24 15:06 Currently or been in a relationship where the following occur: no concerns reported Const General: no acute distress and alert HENMT Ears: TM's normal bilaterally and EAC's normal Throat: Yes posterior oropharynx normal and Yes tonsils normal (no TP congestion) Neck Neck: Yes no lymphadenopathy and Yes supple Resp Auscultation: clear to auscultation bilaterally, no rales and no wheezes Cardio Rate: regular rate Rhythm: regular rhythm Heart sounds: no murmurs GI Palpation (GI): Soft to palpation, nontender and No hepatosplenomegaly present Skin General skin exam: no rashes or lesions noted Extrem General: Yes no clubbing, cyanosis or edema Assessment and Plan Assessment & Plan (1) Asthma: Comment: Singulair daily, ProAir prn, albuterol updraft prn. Code(s): J45.909 - Unspecified asthma, uncomplicated Qualifiers: Asthma severity: mild Asthma persistence: intermittent Asthma complication type: uncomplicated Qualified Code(s): J45.20 - Mild intermittent asthma, uncomplicated Plan: Will start him on Montelukast 10 mg QD to help control his asthma better Continue Albuterol HFA 1 to 2 inhalations Q 6 hours PRN; he also has Albuterol nebulizer solution to use with his updraft device instead of his Albuterol inhaler when needed Used to be on Flovent HFA 110 mcg 1 inhalation BID but it looks like he has not been using this for a while now Advised that if the addition of Montelukast is still not enough to get his asthma under control, then he should try to go back on his Flovent HFA inhaler BID regularly (2) Anxiety: Code(s): F41.9 - Anxiety disorder, unspecified Plan: Continue Hydroxyzine 25 mg BID PRN Will start him on Sertraline 50 mg QD Plan To return as scheduled next month for his annual physical examination Medications: New sertraline 50 mg PO DAILY 30 tabs 2RF 30 days montelukast 10 mg PO QPM 90 tabs 1RF 90 days Coding Level of Care Code Est Pt Level 4 (49831) Diagnoses Mild intermittent asthma without complication J45.20 Asthma severity: mild Asthma persistence: intermittent Asthma complication type: uncomplicated Anxiety F41.9
== END 2024-01-07 16:33 | disposition home or self-care (01) ==
PROVIDERS: PCP Internal Medicine; Visit Provider Internal Medicine
DX: J45.20 Mild intermittent asthma, uncomplicated (principal); F41.9 Anxiety disorder, unspecified
CPT/HCPCS: 99214

== ENCOUNTER 2024-02-07 10:32 | Outpatient (AMB) | payer OTHER, SELFPAY ==
[2024-02-07 10:39] VITALS: BP 124/80; PULSE 58; O2SAT 98; BMI 23.4
--- NOTE | 2024-02-07 10:39 | MHC.PC.OV ---
Vital Signs 02/07/24 10:39 Height 5 ft 3 in Weight 132 lb 2 oz BMI 23.4 BP 124/80 Blood Pressure Location Lt brachial Position Sitting Pulse 58 Pulse Source Pulse Oximeter Pulse Oximetry (%) 98 Oxygen Delivery Method Room Air Intake Visit Reasons: Annual Exam Balance Wheel Facer Required: No Accompanied by: Self / Same As Patient Allergies seafood Allergy (Mild, Verified 02/07/24 21:24) mild tongue swelling, numbness nuts Allergy (Mild, Uncoded 02/07/24 21:07) mild tongue swelling, numbness Medication List - Last Reconciled 02/07/24 by Rene Olivia MD acetaminophen (Tylenol) 650 mg (2 x 325 mg) PO Q6H PRN albuterol sulfate 2.5 mg (3 mL) inhalation Q4-6H PRN albuterol sulfate 90 mcg/actuation 2 puffs inhalation Q6H PRN fluticasone propionate 110 mcg/actuation 2 puffs inhalation DAILY 30 days hydroxyzine HCl 25 mg PO BID PRN montelukast 10 mg PO QPM 90 days sertraline 50 mg PO DAILY 30 days Tobacco use date assessed: 02/07/24 Dental Screening Dental Screen Date: 02/07/24 Did you have a dental visit in the last 12 months?: Yes Did you have a dental problem in the last 6 months where you did not have access to dental care?: No Was dental information given to patient?: Patient has dentist HPI Annual Exam HPI Details Patient comes in today for his annual physical examination States that he feels okay He denies any headaches or dizziness Denies any chest pains, no SOB No nausea/vomiting, no abdominal pain No change in bowel habits noted Denies any acute urinary symptoms States that he has some significant food allergies and also possibly some environmental allergies and would like to get tested for his allergies Recalls that he was referred to allergy and immunology last year for the same reason but he could not make it to his appointment then and had to cancel - would like to get a new referral [facility] Medical History (Updated 02/07/24 @ 21:27 by Rene Olivia MD) Anxiety Lab test positive for detection of COVID-19 virus Asthma Tourette syndrome Surgical History No pertinent past surgical history Family History Father Asthma GERD (gastroesophageal reflux disease) Mother Asthma Anxiety Other Mental health disorder Social History Household Members: Family Housing: House Alcohol intake: current Alcohol intake frequency: holidays/special occasions only Patient Tobacco Use Status: Never used Tobacco e-Cigarette/Vaping Use: Never Used Second Hand Smoke Exposure: No service: No Current occupational status: employed 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 1. Little interest or pleasure in doing things: several days 2. Feeling down, depressed, or hopeless: several days 3. Trouble falling or staying asleep, or sleeping too much: not at all 4. Feeling tired or having little energy: several days 5. Poor appetite or overeating: not at all 6. Feeling bad about yourself - or that you are a failure or have let yourself or your family down: not at all 7. Trouble concentrating on things, such as reading the newspaper or watching television: several days 8. Moving or speaking so slowly that other people could have noticed. Or the opposite - being so fidgety or restless that you have been moving around a lot more than usual: not at all 9. Thoughts that you would be better off or of hurting yourself in some way: not at all Total score: 4 Depression Screening Interpretation: Positive Depression Screening Follow-up: Existing condition and In treatment Depression Screening Done: Yes 55950 - PHQ-9 Billing: Yes Source: Developed by Drs. Marciano Yoder, Henrietta Brooks, Héctor Stinson and colleagues, with an educational jayme from [employer]. Thrive Questionnaire Date Thrive assessed: 02/07/24 I am a: Patient What is your living situation today?: I have a steady place to live Within the past 12 months, did the food you bought not last and you didn't have the money to get more?: Never true Within the past 12 months, did you worry whether your food would run out before you got money to buy more?: Never true Do you have trouble paying for medicines?: No Do you have trouble getting transportation to medical appointments?: No Do you have trouble paying your heating and electricity bill?: No Do you have trouble taking care of your child, family member or friend?: No Do you have trouble with day-to-day activities such as bathing, preparing meals, shopping, managing finances, etc.?: No Are you currently unemployed and looking for a job?: No Are you interested in more education?: No Please select the resources that you would like help with: None Currently or been in a relationship where the following occur: no concerns reported THRIVE Score: 0 AUDIT C Alcohol Use Questionnaire (AUDIT-C) 1. How often do you have a drink containing alcohol?: Monthly or less 2. How many drinks containing alcohol do you have on a typical day when you are drinking?: 1 or 2 3. How often do you have six or more drinks on one occasion?: Never Total Score: 1 Score Reviewed/Action Taken: Yes DEIRDRE-7 AMB Questionnaire DEIRDRE-7 Date DEIRDRE - 7 assessed: 02/07/24 Feeling nervous, anxious, or on edge: 0 = Not at all Not being able to stop or control worryin = Not at all Worrying too much about different things: 0 = Not at all Trouble relaxin = Not at all Being so restless that it is hard to sit still: 0 = Not at all Becoming easily annoyed or irritable: 0 = Not at all Feeling afraid as if something awful might happen: 0 = Not at all Total DEIRDRE-7 score (0-4 normal; 5-9 mild; 10-14 moderate; 15-21 severe): 0 Source: Developed by Drs. Marciano Yoder, Henrietta Brooks, Héctor Stinson and colleagues, with an educational jayme from [employer]. Review of Systems Const Denies chills, Denies fatigue, Denies fever(s), Denies headache(s), Denies malaise and Denies weakness Eyes Denies blurry vision, Denies change in vision, Denies irritation and Denies itchy eyes ENT Denies dysphagia, Denies dizziness, Denies otalgia, Denies headache(s), Denies nasal congestion, Denies neck pain, Denies odynophagia and Denies sore throat Card Denies chest pain, Denies rapid heart rate, Denies irregular heart rhythm, Denies palpitations and Denies dyspnea Resp Denies chest congestion, Denies cough, Denies dyspnea and Denies wheezing GI Denies abdominal pain, Denies bloating, Denies constipation, Denies dysphagia, Denies heartburn, Denies diarrhea, Denies nausea, Denies odynophagia and Denies vomiting Denies hematuria, Denies difficulty urinating, Denies dysuria, Denies urinary frequency and Denies urinary urgency Musc Denies back pain, Denies arthralgias, Denies joint swelling, Denies muscle weakness and Denies neck pain Skin/Breast Denies change in pigmentation, Denies lesions, Denies rash and Denies unusual bruising Neuro Denies dizziness, Denies headache(s), Denies paresthesias and Denies weakness Endo Denies fatigue and Denies palpitations Aller/Immun Denies itchy eyes and Denies wheezing Physical exam (Primary Care) Vital Signs: Last Vital Signs Pulse 58 02/07/24 10:39 BP 124/80 02/07/24 10:39 Pulse Ox 98 02/07/24 10:39 Oxygen Delivery Method Room Air 02/07/24 10:39 BMI result Body Mass Index 23.4 Tobacco/Smoking Status: Tobacco use Status Tobacco use date assessed 02/07/24 02/07/24 10:41 Patient Tobacco Use Status Never used Tobacco 02/07/24 10:41 e-Cigarette/Vaping Use Never Used 02/07/24 10:41 PHQ-9: PHQ-9 Score PHQ-9: Total score 4 02/07/24 11:43 Depression Screening Interpretation: Positive Depression Screening Follow-up: Existing condition and In treatment Thrive Assessment: Date of Thrive Assessment Date Thrive assessed 02/07/24 02/07/24 10:41 Currently or been in a relationship where the following occur: no concerns reported Const General: no acute distress, alert and awake Orientation/consciousness: patient oriented x3 HENMT Head: Yes normocephalic and Yes atraumatic Ears: external ears normal, TM's normal bilaterally and EAC's normal General nose exam: No nasal discharge present Face and sinus: Yes normal facial exam and Yes sinuses nontender Teeth and gingiva: dentition normal Throat: Yes posterior oropharynx normal and Yes tonsils normal (no TP congestion) Eyes Eyelids: Yes eyelids normal Conjunctivae: conjunctivae normal Pupils: Equal, round and reactive pupils present EOM: EOMs intact bilaterally Neck Neck: Yes no lymphadenopathy and Yes supple Thyroid: Thyroid normal Resp Auscultation: clear to auscultation bilaterally, no rales and no wheezes Cardio Rate: regular rate Rhythm: regular rhythm Heart sounds: no murmurs GI Palpation (GI): Soft to palpation, nontender and No hepatosplenomegaly present Auscultation: normal bowel sounds General: Yes no CVA tenderness Back/Spine/Pelvis Back: no CVA tenderness Thoracic/Lumbar Spine: thoracic and lumbar spine normal to inspection Skin Lesions: no lesions Rashes: no rashes Neuro General: patient oriented x3, moves all extremities, no focal motor deficits and CN's II-XI intact bilaterally Cranial nerves: Yes Equal, round and reactive pupils present Cognition (Neuro): normal cognition Gait exam (Neuro): Normal gait present Extrem General: Yes no clubbing, cyanosis or edema Assessment and Plan Assessment & Plan (1) Annual physical exam: Code(s): Z00.00 - Encounter for general adult medical examination without abnormal findings Plan: Check labs (2) Asthma: Comment: Singulair daily, ProAir prn, albuterol updraft prn. Code(s): J45.909 - Unspecified asthma, uncomplicated Qualifiers: Asthma severity: mild Asthma persistence: intermittent Asthma complication type: uncomplicated Qualified Code(s): J45.20 - Mild intermittent asthma, uncomplicated Plan: Stable/controlled He is currently only taking Montelukast 10 mg QD and using his Albuterol HFA 1 to 2 inhalations Q 6 hours PRN Also has Albuterol nebulizer solution to use with his updraft device although he states that he hardly has to use his Albuterol at all Used to be on Flovent HFA 110 mcg 1 inhalation BID but it looks like he has not been using this lately as the Rx has not been refilled in almost a year now (3) Multiple food allergies: Code(s): Z91.018 - Allergy to other foods Plan: Per request, will refer him again to telecommunications sales representative for allergy testing/evaluation (4) Anxiety: Code(s): F41.9 - Anxiety disorder, unspecified Plan: Continue Sertraline 50 mg QD and Hydroxyzine 25 mg BID PRN Plan Follow up in 6 months Orders: Orders Comprehensive [facility]. Panel Fast Today E78.00 - Pure hypercholesterolemia, unspecified, Z00.00 - Encounter for general adult medical examination without abnormal findings Lipid Panel Today E78.00 - Pure hypercholesterolemia, unspecified, Z00.00 - Encounter for general adult medical examination without abnormal findings UA CC w/rflx Micro + Cult Today R30.0 - Dysuria, Z00.00 - Encounter for general adult medical examination without abnormal findings Complete Blood Count Auto Diff Today D64.9 - Anemia, unspecified, Z00.00 - Encounter for general adult medical examination without abnormal findings TSH reflex Free T4 Today E78.00 - Pure hypercholesterolemia, unspecified, Z00.00 - Encounter for general adult medical examination without abnormal findings Vitamin D 25-OH Total Today E55.9 - Vitamin D deficiency, unspecified, Z00.00 - Encounter for general adult medical examination without abnormal findings Referrals Allergy & Immunology Referral Z91.013 - Allergy to seafood, Z91.018 - Allergy to other foods Coding Level of Care Code Est Pt Prev Care 18-39y([id number]) Diagnoses Annual physical exam Z00.00 Mild intermittent asthma without complication J45.20 Asthma severity: mild Asthma persistence: intermittent Asthma complication type: uncomplicated Multiple food allergies Z91.018 Anxiety F41.9
== END 2024-02-07 11:51 | disposition home or self-care (01) ==
PROVIDERS: PCP Internal Medicine; Visit Provider Internal Medicine
DX: Z00.00 Encounter for general adult medical examination without abnormal findings (principal); J45.20 Mild intermittent asthma, uncomplicated; Z91.018 Allergy to other foods; F41.9 Anxiety disorder, unspecified
CPT/HCPCS: 99395

== ENCOUNTER 2024-04-11 13:26 | Outpatient (AMB) | payer OTHER, SELFPAY ==
[2024-04-11 13:28] VITALS: BP 112/72; PULSE 88; O2SAT 96; BMI 23.2
--- NOTE | 2024-04-11 13:28 | A.OFFVIS_ITS ---
Vital Signs 04/11/24 13:28 Height 5 ft 3 in Weight 131 lb 2.801 oz BMI 23.2 BP 112/72 Blood Pressure Location Rt brachial Position Sitting Pulse 88 Pulse Source Doppler Pulse Oximetry (%) 96 Oxygen Delivery Method Room Air Intake Visit Reasons: moderate persistent asthma Allergies seafood Allergy (Mild, Verified 04/11/24 13:31) mild tongue swelling, numbness nuts Allergy (Mild, Uncoded 02/07/24 21:07) mild tongue swelling, numbness HPI HPI moderate persistent asthma: Details: 23-year-old gentleman, nonsmoker, with underlying asthma since childhood previously controlled on albuterol and Flovent though not using regularly, referred for follow-up of his asthma symptoms. Patient states that he had 2 exacerbations this year treated with courses of prednisone. He denies an acute exacerbation at this time. He denies exposure to industrial dusts. Patient does have family history of asthma. Patient also has several cats and a dog at home. He denies significant symptoms from environmental allergies, but is undergoing workup for food allergies. [facility] Medical History (Updated 04/11/24 @ 13:50 by Elio Caldera MD) Anxiety Lab test positive for detection of COVID-19 virus Asthma Tourette syndrome Surgical History No pertinent past surgical history Family History Father Asthma GERD (gastroesophageal reflux disease) Mother Asthma Anxiety Other Mental health disorder Social History (Reviewed 04/11/24 @ 13:33 by Daily Pierre [facility]) Household Members: Family Housing: House Alcohol intake: current Alcohol intake frequency: holidays/special occasions only Patient Tobacco Use Status: Never used Tobacco e-Cigarette/Vaping Use: Never Used Second Hand Smoke Exposure: No service: No Current occupational status: employed 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 Cognitive needs: No Hearing needs: No Vision needs: Yes (glasses) Review of Systems Const Denies daytime sleepiness, Denies excessive sweating, Denies fatigue, Denies fever(s), Denies lethargy, Denies malaise, Denies night sweats, Denies snoring and Denies weight loss Eyes Denies blurry vision and Denies itchy eyes ENT Denies nasal congestion, Denies post nasal drip, Denies sinus pain, Denies sinus pressure and Denies other ( Thrush) Card Denies chest pain, Denies pedal edema, Denies dyspnea, Denies orthopnea and Denies paroxysmal nocturnal dyspnea Resp Denies cough, Denies hemoptysis, Denies excessive phlegm production, Denies dyspnea, Denies snoring and Denies wheezing GI Denies abdominal pain and Denies heartburn Musc Denies myalgias, Denies arthralgias and Denies joint swelling Skin/Breast Denies rash Neuro Denies memory loss and Denies seizure-like activity Psych Denies abnormal sleep pattern, Denies anxiety and Denies memory loss Endo Denies excessive sweating, Denies fatigue and Denies heat intolerance Rafael/Lymph Denies easy bruising Aller/Immun Denies itchy eyes, Denies seasonal rhinorrhea and Denies wheezing Physical Exam Vital Signs: Last Vital Signs Pulse 88 04/11/24 13:28 BP 112/72 04/11/24 13:28 Pulse Ox 96 04/11/24 13:28 Oxygen Delivery Method Room Air 04/11/24 13:28 BMI result Body Mass Index 23.2 Const General: no acute distress and alert Nutritional Appearance: not obese Orientation/consciousness: Other orientation findings ( oriented) HEENT Head: Yes atraumatic Eyes General: appearance normal, both eyes and all related structures Sclerae: sclerae normal EOM: EOMs intact bilaterally Neck Neck: Yes supple Lymphatic: no lymphadenopathy noted Resp Effort & Inspection: normal respiratory effort and no use of accessory muscles Auscultation: clear to auscultation bilaterally Cardio Rate: regular rate Rhythm: regular rhythm Heart sounds: no gallops, no murmurs and no rubs Skin General skin exam: other ( warm) Extrem General: No clubbing, No cyanosis and No edema Assessment & Plan Assessment & Plan (1) Asthma: Code(s): J45.909 - Unspecified asthma, uncomplicated Category: Medical Qualifiers: Asthma severity: mild Asthma persistence: intermittent Asthma complication type: uncomplicated Qualified Code(s): J45.20 - Mild intermittent asthma, uncomplicated Plan: Underlying mild recent asthma at this time controlled on inhaled corticosteroid outlined continue albuterol MDI. Will obtain full PFT. (2) Allergy to seafood: Code(s): Z91.013 - Allergy to seafood Category: Medical Plan: Patient is waiting for an nutrition helper appointment for further testing. Testing offered at [facility] [place]. Will continue on Singulair at this time. Orders: Orders PFT pulmonary function test Today J45.20 - Mild intermittent asthma, uncomplicated Medications: New fluticasone furoate 100 mcg/actuation (Arnuity Ellipta) 1 inh inhalation DAILY 1 ea 6RF 30 days J45.20 - Mild intermittent asthma, uncomplicated Discontinued fluticasone propionate 110 mcg/actuation Discontinued Reason: Doctor's Order 2 puffs inhalation DAILY 30 days 12 grams 5RF Coding Level of Care Code New Pt Level 4 (76837) Diagnoses Mild intermittent asthma without complication J45.20 Asthma severity: mild Asthma persistence: intermittent Asthma complication type: uncomplicated Allergy to seafood Z91.013
== END 2024-04-11 13:47 | disposition home or self-care (01) ==
PROVIDERS: PCP Internal Medicine; Visit Provider Internal Medicine Pulmonary Disease
DX: J45.20 Mild intermittent asthma, uncomplicated (principal); Z91.013 Allergy to seafood
CPT/HCPCS: 99204

== ENCOUNTER → 2024-04-11 13:26 | Outpatient (BNVA) | payer OTHER, SELFPAY | PROVIDERS: PCP Internal Medicine; Visit Provider Internal Medicine Pulmonary Disease ==

== ENCOUNTER 2024-08-11 12:45 | Outpatient (AMB) | payer OTHER, SELFPAY ==
[2024-08-11 12:46] VITALS: BP 110/70; PULSE 78; O2SAT 99; BMI 24.3
--- NOTE | 2024-08-11 12:46 | MHC.PC.OV ---
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: No Accompanied by: Self / Same As Patient Allergies seafood Allergy (Mild, Verified 08/11/24 13:21) mild tongue swelling, numbness nuts Allergy (Mild, Uncoded 08/11/24 13:21) mild tongue swelling, numbness Medication List - Last Reconciled 08/11/24 by Rene Olivia MD acetaminophen (Tylenol) 650 mg (2 x 325 mg) PO Q6H PRN albuterol sulfate 2.5 mg (3 mL) inhalation Q4-6H PRN albuterol sulfate 90 mcg/actuation (Ventolin HFA) 2 puffs inhalation Q6H PRN fluticasone furoate 100 mcg/actuation (Arnuity Ellipta) 1 inh inhalation DAILY 30 days hydroxyzine HCl 25 mg PO BID PRN montelukast 10 mg PO QPM 90 days sertraline 50 mg PO DAILY 30 days Tobacco use date assessed: 08/11/24 Dental Screening Dental Screen Date: 08/11/24 Did you have a dental visit in the last 12 months?: Yes Did you have a dental problem in the last 6 months where you did not have access to dental care?: No Was dental information given to patient?: Patient has dentist HPI asthma HPI Details Patient comes in today for his follow up visit States that he feels okay He denies any headaches or dizziness Denies any chest pains, no SOB - states that his asthma has been well-controlled lately No nausea/vomiting, no abdominal pain No change in bowel habits noted He needs a few of his Rx refilled today PFSH Medical History Anxiety Lab test positive for detection of COVID-19 virus Asthma Tourette syndrome Surgical History No pertinent past surgical history Family History Father Asthma GERD (gastroesophageal reflux disease) Mother Asthma Anxiety Other Mental health disorder Social History Household Members: Family Housing: House Alcohol intake: current Alcohol intake frequency: holidays/special occasions only Patient Tobacco Use Status: Never used Tobacco e-Cigarette/Vaping Use: Never Used Second Hand Smoke Exposure: No service: No Current occupational status: employed 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 1. Little interest or pleasure in doing things: several days 2. Feeling down, depressed, or hopeless: several days 3. Trouble falling or staying asleep, or sleeping too much: not at all 4. Feeling tired or having little energy: several days 5. Poor appetite or overeating: not at all 6. Feeling bad about yourself - or that you are a failure or have let yourself or your family down: not at all 7. Trouble concentrating on things, such as reading the newspaper or watching television: several days 8. Moving or speaking so slowly that other people could have noticed. Or the opposite - being so fidgety or restless that you have been moving around a lot more than usual: not at all 9. Thoughts that you would be better off or of hurting yourself in some way: not at all Total score: 4 Depression Screening Interpretation: Positive Depression Screening Follow-up: Existing condition and In treatment Depression Screening Done: Yes 70131 - PHQ-9 Billing: Yes Source: Developed by Drs. Marciano Yoder, Henrietta Brooks, Héctor Stinson and colleagues, with an educational jayme from [employer]. Thrive Questionnaire Date Thrive assessed: 08/11/24 I am a: Patient What is your living situation today?: I have a steady place to live Within the past 12 months, did the food you bought not last and you didn't have the money to get more?: Never true Within the past 12 months, did you worry whether your food would run out before you got money to buy more?: Never true Do you have trouble paying for medicines?: No Do you have trouble getting transportation to medical appointments?: No Do you have trouble paying your heating and electricity bill?: No Do you have trouble taking care of your child, family member or friend?: No Do you have trouble with day-to-day activities such as bathing, preparing meals, shopping, managing finances, etc.?: No Are you currently unemployed and looking for a job?: No Are you interested in more education?: No Please select the resources that you would like help with: None Currently or been in a relationship where the following occur: No concerns reported THRIVE Score: 0 AUDIT C Alcohol Use Questionnaire (AUDIT-C) 1. How often do you have a drink containing alcohol?: Monthly or less 2. How many drinks containing alcohol do you have on a typical day when you are drinking?: 1 or 2 3. How often do you have six or more drinks on one occasion?: Never Total Score: 1 Score Reviewed/Action Taken: Yes DEIRDRE-7 AMB Questionnaire DEIRDRE-7 Date DEIRDRE - 7 assessed: 08/11/24 Feeling nervous, anxious, or on edge: 0 = Not at all Not being able to stop or control worryin = Not at all Worrying too much about different things: 0 = Not at all Trouble relaxin = Not at all Being so restless that it is hard to sit still: 0 = Not at all Becoming easily annoyed or irritable: 0 = Not at all Feeling afraid as if something awful might happen: 0 = Not at all Total DEIRDRE-7 score (0-4 normal; 5-9 mild; 10-14 moderate; 15-21 severe): 0 Source: Developed by Drs. Marciano Yoder, Henrietta Brooks, Héctor Stinson and colleagues, with an educational jayme from [employer]. Review of Systems Const Denies chills, Denies fatigue, Denies fever(s) and Denies headache(s) ENT Denies dysphagia, Denies dizziness, Denies otalgia, Denies headache(s), Denies neck pain, Denies odynophagia and Denies sore throat Card Denies chest pain, Denies palpitations and Denies dyspnea Resp Denies chest congestion, Denies cough, Denies dyspnea and Denies wheezing GI Denies abdominal pain, Denies constipation, Denies dysphagia, Denies heartburn, Denies diarrhea, Denies nausea, Denies odynophagia and Denies vomiting Denies dysuria, Denies nocturia and Denies urinary frequency Musc Denies back pain and Denies neck pain Skin/Breast Denies rash Neuro Denies dizziness and Denies headache(s) Psych Denies anxiety and Denies depression Endo Denies fatigue and Denies palpitations Aller/Immun Denies wheezing Physical exam (Primary Care) Vital Signs: Last Vital Signs Pulse 78 08/11/24 12:46 BP 110/70 08/11/24 12:46 Pulse Ox 99 08/11/24 12:46 Oxygen Delivery Method Room Air 08/11/24 12:46 BMI result Body Mass Index 24.3 Tobacco/Smoking Status: Tobacco use Status Tobacco use date assessed 08/11/24 08/11/24 12:54 Patient Tobacco Use Status Never used Tobacco 08/11/24 12:54 e-Cigarette/Vaping Use Never Used 08/11/24 12:54 PHQ-9: PHQ-9 Score PHQ-9: Total score 4 08/11/24 13:22 Depression Screening Interpretation: Positive Depression Screening Follow-up: Existing condition and In treatment Thrive Assessment: Date of Thrive Assessment Date Thrive assessed 08/11/24 08/11/24 12:54 Currently or been in a relationship where the following occur: No concerns reported Const General: no acute distress and alert HENMT Ears: TM's normal bilaterally and EAC's normal Throat: Yes posterior oropharynx normal and Yes tonsils normal (no TP congestion) Neck Neck: Yes no lymphadenopathy and Yes supple Thyroid: Thyroid normal Resp Auscultation: clear to auscultation bilaterally, no rales and no wheezes Cardio Rate: regular rate Rhythm: regular rhythm Heart sounds: no murmurs GI Palpation (GI): Soft to palpation and nontender Auscultation: normal bowel sounds General: Yes no CVA tenderness Back/Spine/Pelvis Back: no CVA tenderness Thoracic/Lumbar Spine: No lumbar spinal tenderness Skin Rashes: no rashes Extrem General: Yes no clubbing, cyanosis or edema Assessment and Plan Assessment & Plan (1) Asthma: Code(s): J45.909 - Unspecified asthma, uncomplicated Qualifiers: Asthma severity: mild Asthma persistence: intermittent Asthma complication type: uncomplicated Qualified Code(s): J45.20 - Mild intermittent asthma, uncomplicated Plan: Stable/controlled Continue Arnuity Ellipta 100 mcg 1 inhalation QD, Montelukast 10 mg QD and Albuterol HFA 1 to 2 inhalations Q 6 hours PRN He also has Albuterol nebulizer solution to use with his updraft device although he states that he hardly has to use his Albuterol at all (2) Multiple food allergies: Code(s): Z91.018 - Allergy to other foods Plan: Per request, he was previously referred to an hook loader for allergy testing/evaluation (3) Anxiety: Code(s): F41.9 - Anxiety disorder, unspecified Plan: Continue Sertraline 50 mg QD and Hydroxyzine 25 mg BID PRN Plan To return as scheduled in 6 months for his next annual physical examination Patient is advised to get his labs done just BEFORE he comes back in 6 months for his next appointment Orders: Orders Complete Blood Count Auto Diff 01/31/25 D64.9 - Anemia, unspecified, Z00.00 - Encounter for general adult medical examination without abnormal findings Lipid Panel 01/31/25 E78.00 - Pure hypercholesterolemia, unspecified, Z00.00 - Encounter for general adult medical examination without abnormal findings TSH reflex Free T4 01/31/25 E78.00 - Pure hypercholesterolemia, unspecified, Z00.00 - Encounter for general adult medical examination without abnormal findings UA CC w/rflx Micro + Cult 01/31/25 R30.0 - Dysuria, Z00.00 - Encounter for general adult medical examination without abnormal findings Comprehensive [place]. Panel Fast 01/31/25 E78.00 - Pure hypercholesterolemia, unspecified, Z00.00 - Encounter for general adult medical examination without abnormal findings Vitamin D 25-OH Total 01/31/25 E55.9 - Vitamin D deficiency, unspecified, Z00.00 - Encounter for general adult medical examination without abnormal findings Medications: Changed From albuterol sulfate 90 mcg/actuation 2 puffs inhalation Q6H PRN 8.5 grams 3RF shortness of breath or wheezing J45.20 - Mild intermittent asthma, uncomplicated To albuterol sulfate 90 mcg/actuation (Ventolin HFA) 2 puffs inhalation Q6H PRN 8.5 grams 3RF shortness of breath or wheezing J45.20 - Mild intermittent asthma, uncomplicated Refilled montelukast 10 mg PO QPM 90 days 90 tabs 1RF fluticasone furoate 100 mcg/actuation (Arnuity Ellipta) 1 inh inhalation DAILY 30 days 30 ea 5RF J45.20 - Mild intermittent asthma, uncomplicated Coding Level of Care Code Est Pt Level 3 (82960) Diagnoses Mild intermittent asthma without complication J45.20 Asthma severity: mild Asthma persistence: intermittent Asthma complication type: uncomplicated Multiple food allergies Z91.018 Anxiety F41.9
== END 2024-08-11 13:23 | disposition home or self-care (01) ==
PROVIDERS: PCP Internal Medicine; Visit Provider Internal Medicine
DX: J45.20 Mild intermittent asthma, uncomplicated (principal); Z91.018 Allergy to other foods; F41.9 Anxiety disorder, unspecified

== ENCOUNTER → 2024-08-11 12:45 | Outpatient (BNVA) | payer OTHER, SELFPAY | PROVIDERS: PCP Internal Medicine; Visit Provider Internal Medicine | DX: J45.20 Mild intermittent asthma, uncomplicated (principal); F41.9 Anxiety disorder, unspecified; Z79.899 Other long term (current) drug therapy; Z91.018 Allergy to other foods | CPT/HCPCS: 96127 ==

== ENCOUNTER 2024-08-29 08:40 | Outpatient (REF) | payer OTHER, SELFPAY ==
--- NOTE | 2024-08-29 09:46 | PFT_ITS ---
Flows: FEV1: 79 % of predicted at 3.01 L FVC: 97 % of predicted at 4.32 L FEV1/FVC: 70 % Bronchodilator response: Absent Volumes: Total lung capacity: 110 % of predicted at 6.15 L Residual volume: 150 % of predicted at 1.77 L Slow vital capacity: 102 % of predicted at 4.38 L Expiratory reserve volume: 66 % of predicted at 0.86 L Diffusion capacity: Normal Impression: Moderate obstructive ventilatory defect with no bronchodilator response. Increased residual volume suggests air trapping. MTDD
== END 2024-08-29 08:41 | disposition home or self-care (01) ==
LOC: HO.RESP 08:40
PROVIDERS: PCP Internal Medicine; Visit Provider Internal Medicine Pulmonary Disease
DX: J45.20 Mild intermittent asthma, uncomplicated (principal)
CPT/HCPCS: 94010; 94640; 94727; 94729

== ENCOUNTER → 2024-08-29 09:46 | Outpatient (BNV) | payer OTHER, SELFPAY | PROVIDERS: PCP Internal Medicine; Visit Provider Internal Medicine Pulmonary Disease | DX: J45.20 Mild intermittent asthma, uncomplicated (principal) | CPT/HCPCS: 94060; 94727; 94729 ==

== ENCOUNTER 2024-09-26 09:54 | Outpatient (AMB) | payer OTHER, SELFPAY ==
[2024-09-26 10:07] VITALS: BP 104/58; PULSE 85; O2SAT 99; BMI 24.4
--- NOTE | 2024-09-26 10:07 | MHC.OFFVIS ---
Vital Signs 09/26/24 10:07 Height 5 ft 3 in Weight 137 lb 12.623 oz BMI 24.4 BP 104/58 L Blood Pressure Location Lt brachial Position Sitting Pulse 85 Pulse Source Doppler Pulse Oximetry (%) 99 Oxygen Delivery Method Room Air Intake Visit Reasons: Asthma/PFT Follow Up Allergies seafood Allergy (Mild, Verified 08/11/24 13:21) mild tongue swelling, numbness nuts Allergy (Mild, Uncoded 08/11/24 13:21) mild tongue swelling, numbness HPI HPI Asthma/PFT Follow Up: Details: 23-year-old gentleman, nonsmoker, with underlying asthma since childhood previously controlled on albuterol and Flovent though not using regularly, referred for follow-up of his asthma symptoms. Patient states that he had 2 exacerbations this year treated with courses of prednisone. He denies an acute exacerbation at this time. He denies exposure to industrial dusts. Patient does have family history of asthma. Patient also has several cats and a dog at home. He denies significant symptoms from environmental allergies, but is undergoing workup for food allergies. After the last office visit patient continued on Arnuity with suboptimal control of his symptoms. He denies acute exacerbations. 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 PENDING SALE TO [facility] Medical History Anxiety Lab test positive for detection of COVID-19 virus Asthma Tourette syndrome Surgical History No pertinent past surgical history Family History Father Asthma GERD (gastroesophageal reflux disease) Mother Asthma Anxiety Other Mental health disorder Social History Household Members: Family Housing: House Alcohol intake: current Alcohol intake frequency: holidays/special occasions only Patient Tobacco Use Status: Never used Tobacco e-Cigarette/Vaping Use: Never Used Second Hand Smoke Exposure: No service: No Current occupational status: employed 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 Cognitive needs: No Hearing needs: No Vision needs: Yes (glasses) Review of Systems Const Denies daytime sleepiness, Denies excessive sweating, Denies fatigue, Denies fever(s), Denies lethargy, Denies malaise, Denies night sweats, Denies snoring and Denies weight loss Eyes Denies blurry vision and Denies itchy eyes ENT Denies nasal congestion, Denies post nasal drip, Denies sinus pain, Denies sinus pressure and Denies other ( Thrush) Card Denies chest pain, Denies pedal edema, Denies dyspnea, Denies orthopnea and Denies paroxysmal nocturnal dyspnea Resp Denies cough, Denies hemoptysis, Denies excessive phlegm production, Denies dyspnea, Denies snoring and Denies wheezing GI Denies abdominal pain and Denies heartburn Musc Denies myalgias, Denies arthralgias and Denies joint swelling Skin/Breast Denies rash Neuro Denies memory loss and Denies seizure-like activity Psych Denies abnormal sleep pattern, Denies anxiety and Denies memory loss Endo Denies excessive sweating, Denies fatigue and Denies heat intolerance Rafael/Lymph Denies easy bruising Aller/Immun Denies itchy eyes, Denies seasonal rhinorrhea and Denies wheezing Physical Exam Vital Signs: Last Vital Signs Pulse 85 09/26/24 10:07 BP 104/58 L 09/26/24 10:07 Pulse Ox 99 09/26/24 10:07 Oxygen Delivery Method Room Air 09/26/24 10:07 BMI result Body Mass Index 24.4 Const General: no acute distress and alert Nutritional Appearance: not obese Orientation/consciousness: Other orientation findings ( oriented) HEENT Head: Yes atraumatic Eyes General: appearance normal, both eyes and all related structures Sclerae: sclerae normal EOM: EOMs intact bilaterally Neck Neck: Yes supple Lymphatic: no lymphadenopathy noted Resp Effort & Inspection: normal respiratory effort and no use of accessory muscles Auscultation: clear to auscultation bilaterally Cardio Rate: regular rate Rhythm: regular rhythm Heart sounds: no gallops, no murmurs and no rubs Skin General skin exam: other ( warm) Extrem General: No clubbing, No cyanosis and No edema Assessment & Plan Assessment & Plan (1) Asthma: Code(s): J45.909 - Unspecified asthma, uncomplicated Category: Medical Qualifiers: Asthma severity: mild Asthma persistence: intermittent Asthma complication type: uncomplicated Qualified Code(s): J45.20 - Mild intermittent asthma, uncomplicated Plan: Will switch Arnuity to Breo as symptoms suboptimally controlled. Continue albuterol MDI. (2) Environmental allergies: Code(s): Z91.09 - Other allergy status, other than to drugs and biological substances Category: Medical Plan: Will obtain RAST, IgE level, and CBC with differential for further evaluation. Orders: Orders Rast Allergen Today Z91.09 - Other allergy status, other than to drugs and biological substances Complete Blood Count Auto Diff Today Z91.09 - Other allergy status, other than to drugs and biological substances Medications: New fluticasone furoate-vilanterol 200-25 mcg/dose (Breo Ellipta) 1 inh inhalation DAILY 1 ea 6RF Z91.09 - Other allergy status, other than to drugs and biological substances Discontinued fluticasone furoate 100 mcg/actuation (Arnuity Ellipta) Discontinued Reason: Doctor's Order 1 inh inhalation DAILY 30 days 30 ea 5RF J45.20 - Mild intermittent asthma, uncomplicated Coding Level of Care Code Est Pt Level 4 (56186) Diagnoses Mild intermittent asthma without complication J45.20 Asthma severity: mild Asthma persistence: intermittent Asthma complication type: uncomplicated Environmental allergies Z91.09
== END 2024-09-26 10:28 | disposition home or self-care (01) ==
LOC: HO.HPS 09:55
PROVIDERS: PCP Internal Medicine; Visit Provider Internal Medicine Pulmonary Disease
DX: J45.20 Mild intermittent asthma, uncomplicated (principal); Z91.09 Other allergy status, other than to drugs and biological substances
CPT/HCPCS: 99214

== ENCOUNTER → 2024-09-26 09:54 | Outpatient (BNVA) | payer OTHER, SELFPAY | PROVIDERS: PCP Internal Medicine; Visit Provider Internal Medicine Pulmonary Disease ==

== ENCOUNTER 2024-12-30 15:12 | Outpatient (REF) | payer OTHER, SELFPAY ==
--- NOTE | ~2024-12-30 | XR_ITS ---
EXAMINATION: XR CHEST CLINICAL INFORMATION: R07.9 - Chest pain, unspecified COMPARISON: None available. TECHNIQUE: 2 views of the chest were obtained. FINDINGS: No significant abnormality is noted involving the heart, lungs, mediastinum, bony thorax or soft tissues. XR/XR chest 2V IMPRESSION: Unremarkable chest examination. Electronically signed by: Alex Elkins MD 12/31/2024 08:57 AM [facility]
== END 2024-12-30 15:13 | disposition home or self-care (01) ==
LOC: HO.XRAY 15:12
PROVIDERS: PCP Internal Medicine; Visit Provider Internal Medicine
DX: J45.20 Mild intermittent asthma, uncomplicated (principal); F41.1 Generalized anxiety disorder; R07.9 Chest pain, unspecified
CPT/HCPCS: 71046; 96127

== ENCOUNTER 2024-12-30 15:12 | Outpatient (AMB) | payer OTHER, SELFPAY ==
--- OUTSIDE RECORDS SUMMARY | 2024-12-30 15:16 | XMS_ITS | Referral Summary ---
Author Organization [facility] Address [address] [place] [id number] Care Team Providers Care Life Advisor Name Role Phone Nena Brooks Primary Care Provider + [phone] Source Comments Please note that some or all of the patient's information could have additional privacy protections. State laws allow health care providers to render certain types of treatment to minors without parental consent. Please do not assume that this information can be shared solely by obtaining just the consent of the patient's parent/guardian. Please determine if all or part of the patient's care was rendered without parent/guardian involvement. 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 Not on file 08/10/2023 Share good news about positive changes: Not on f ile 08/10/2023 Sex and Gender Information Value Date Recorded Sex Assigned at Not on file Legal Sex Male 11:45 AM EST Gender Identity Not on file Sexual Orientation Not on file Last Filed Vital Signs Vital Sign Reading Time Taken Comments Blood Pressure 107/54 02/24/2019 1:53 PM EDT Pulse 81 02/24/2019 1:53 PM EDT Temperature - - Respiratory Rate - - Oxygen Saturation - - Inhaled Oxygen Concentration - - Weight 48.8 kg (107 lb 9.4 oz) 02/24/2019 1:53 P M EDT Height 154.1 cm (5' 0.67 ) 02/24/2019 1:53 PM ED T Body Mass Index 20.55 02/24/2019 1:53 PM EDT Plan of Treatment Not on file Insurance GENERIC MEDICAID (NON-CT) Care Teams Life Advisor Relationship Specialty Start Date End Date Nena Brooks PA [address] [place] [address] [place] [address] PCP - General 01/17/18
--- OUTSIDE RECORDS SUMMARY | 2024-12-30 15:16 | XMS_ITS | Clinical Summary ---
Author Organization [facility] Address [address] [place] [address] [address] [place] [address] Care Team Providers Care Insights Strategist Name Role Phone Unavailable Primary Care Provider Unavailabl e Allergies No known active allergies Medications No known medications Social History Tobacco Use Types Packs/Day Years Used Date Smoking Tobacco: Never Smokeless Tobacco: Never Tobacco Cessation:Counseling Given: Not Answered Sex and Gender Information Value Date Recorded Sex Assigned at Male 04/19/2023 2:19 PM EDT Legal Sex Male 2:06 PM EDT Gender Identity Male 04/19/2023 2:19 PM EDT Sexual Orientation Straight 04/19/2023 2: 19 PM EDT Last Filed Vital Signs Vital Sign Reading Time Taken Comments Blood Pressure 100/60 01/29/2024 9:44 AM EST Pulse 65 01/29/2024 9:44 AM EST Temperature - - Respiratory Rate - - Oxygen Saturation - - Inhaled Oxygen Concentration - - Weight - - Height - - Body Mass Index - - Plan of Treatment Health Maintenance Due Date Last Done Comments Chlamydia and Gonorrhea Screening 2002 Dental Oral Exam 2002 Depression Screening 2002 HIV Screening 2002 SDOH Screening 2002 Alcohol/Substance Use Screening 2014 Family Planning (PISQ) 2017 Hepatitis C Screening 2020 Hepatitis B Vaccines (1 of 3 - 19+ 3-dose series) 2021 COVID-19 Vaccine (2023-2 5 season) 2024 04/20/2021, 03/23/2021 Influenza Vaccine (#1) 2024 11/05/2020 Dental Prophylaxis 08/01/2024 01/29/2024, 08/09/2023 Dental X-Ray: Bitewings 08/10/2024 08/09/2023 Tobacco Screening 01/28/2025 01/29/2024 Dental X-Ray: Full Mouth 06/17/2027 06/16/2024 DTaP/Tdap/Td Vaccines (2 - T d or Tdap) 01/03/2031 01/03/2021 Zoster Vaccines (1 of 2) 2052 RSV Patients and Patients Aged 60 years or older (1 - 1-dose 75+ series) 2077 Meningococcal Vaccine Completed 08/28/2019 HPV Vaccines Completed 04/13/2021, 10/14/2020, 08/16/2017 HIB Vaccines Aged Out No longer eligi ble based on patient's age to complete this topic Hepatitis A Vaccines Aged Out No long er eligible based on patient's age to complete this topic IPV Vaccines Aged Out No longer eligi ble based on patient's age to complete this topic Pneumococcal Vaccine: Pediatrics (0 to 5 Years) and At-Risk Patients (6 to 49) Years) Aged Out No longer eligible b ased on patient's age to complete this topic RSV under 20 months Aged Out No longe r eligible based on patient's age to complete this topic Rotavirus Vaccines Aged Out No longer eligible based on patient's age to complete this topic Procedures Procedure Name Priority Date/Time Associated Diagnosis Comments PANORAMIC RADIOGRAPHIC IMAGE Routine 06/16/2024 5:00 PM EDT Full PROPHYLAXIS - ADULT Routine 024 10:00 AM EST BITEWINGS - 4 RADIOGRAPHIC IMAGES Routine 08/09/2023 4:00 PM EDT from Last 3 Months or Most Recently Relevant to Health Maintenance Insurance DENTAL - [employer]
--- OUTSIDE RECORDS SUMMARY | 2024-12-30 15:16 | XMS_ITS | Clinical Summary ---
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 Family History Medical History Relation Name Comments Down syndrome Brother still born, mu ltiple congenital anomilites Relation Name Status Comments Brother Social History Tobacco Use Types Packs/Day Years [...] 02/24/2019 1:53 PM EDT Plan of Treatment Health Maintenance Due Date Last Done Comments DTaP/TDAP/TD VACCINES (1 - Tdap) 2009 ADOLESCENT HIV SCREENING 2015 COVID-19 Vaccine (2023-2 5 season) 2024 INFLUENZA (#1) 2024 NIRSEVIMAB VACCINES UNDER 8 MONTHS Aged Out No longer eligible based on patient's age to complete this topic Insurance GENERIC MEDICAID (NON-CT) Care Teams Insurance Verifier Relationship Specialty Start Date End Date Nena Brooks PA [address] [place] [address] [address] [place], [place] [id number] PCP - General 01/17/18
--- NOTE | 2024-12-30 15:18 | MHC.PC.OV ---
Vital Signs 12/30/24 15:19 Height 5 ft 3 in Weight 135 lb BMI 23.9 BP 124/76 Blood Pressure Location Lt brachial Position Sitting Pulse 82 Pulse Source Pulse Oximeter Pulse Oximetry (%) 98 Oxygen Delivery Method Room Air Intake Visit Reasons: Pain in left chest Allergies seafood Allergy (Mild, Verified 12/30/24 15:20) mild tongue swelling, numbness nuts Allergy (Mild, Uncoded 12/30/24 15:20) mild tongue swelling, numbness Tobacco use date assessed: 12/30/24 Dental Screening Dental Screen Date: 12/30/24 Did you have a dental visit in the last 12 months?: Yes Did you have a dental problem in the last 6 months where you did not have access to dental care?: No Was dental information given to patient?: Patient has dentist HPI Pain in left chest HPI Details The patient is a 24-year-old male presenting with a follow-up visit for asthma management. He has a documented history of mild intermittent asthma. During his last consultation with pulmonology in September 2024, a recommendation was made to switch his medication regimen from RWT to Breo. It was advised that he continues using short-acting albuterol as needed. He has been closely monitoring his asthma symptoms, which have not shown significant exacerbation or complications recently, implying stability in his condition. His medical history is also significant for generalized anxiety disorder, though no specific details pertaining to the current management or impact on his asthma were discussed. Pertinent laboratory work done in May 2023 demonstrated normal blood count, electrolytes, renal function, and liver function, except for one instance of liver enzyme elevation, and his cholesterol levels remain within normal limits. Patient has complained of more recent chest discomfort on the left side with no rashes no redness but more of a vague deep chest pain on the left arm denies any episodes of doing any activity or trauma but does complain of the pain going to the left arm. Patient does not have any history of cholesterol problem does not have any history of family history. [facility] Medical History Anxiety Lab test positive for detection of COVID-19 virus Asthma Tourette syndrome Surgical History No pertinent past surgical history Family History Father Asthma GERD (gastroesophageal reflux disease) Mother Asthma Anxiety Other Mental health disorder Social History Household Members: Family Housing: House Alcohol intake: current Alcohol intake frequency: holidays/special occasions only Patient Tobacco Use Status: Never used Tobacco Tobacco use type: Cigarette e-Cigarette/Vaping Use: Never Used Second Hand Smoke Exposure: No service: No Current occupational status: employed 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 1. Little interest or pleasure in doing things: several days 2. Feeling down, depressed, or hopeless: several days 3. Trouble falling or staying asleep, or sleeping too much: not at all 4. Feeling tired or having little energy: several days 5. Poor appetite or overeating: not at all 6. Feeling bad about yourself - or that you are a failure or have let yourself or your family down: not at all 7. Trouble concentrating on things, such as reading the newspaper or watching television: several days 8. Moving or speaking so slowly that other people could have noticed. Or the opposite - being so fidgety or restless that you have been moving around a lot more than usual: not at all 9. Thoughts that you would be better off or of hurting yourself in some way: not at all Total score: 4 Depression Screening Interpretation: Positive Depression Screening Follow-up: Existing condition and In treatment Depression Screening Done: Yes 01411 - PHQ-9 Billing: Yes Source: Developed by Drs. Marciano Yoder, Henrietta Brooks, Héctor Stinson and colleagues, with an educational jayme from [employer]. Thrive Questionnaire Date Thrive assessed: 12/30/24 I am a: Patient What is your living situation today?: I have a steady place to live Within the past 12 months, did the food you bought not last and you didn't have the money to get more?: Never true Within the past 12 months, did you worry whether your food would run out before you got money to buy more?: Never true Do you have trouble paying for medicines?: No Do you have trouble getting transportation to medical appointments?: No Do you have trouble paying your heating and electricity bill?: No Do you have trouble taking care of your child, family member or friend?: No Do you have trouble with day-to-day activities such as bathing, preparing meals, shopping, managing finances, etc.?: No Are you currently unemployed and looking for a job?: No Are you interested in more education?: No Please select the resources that you would like help with: None Currently or been in a relationship where the following occur: No concerns reported THRIVE Score: 0 AUDIT C Alcohol Use Questionnaire (AUDIT-C) 1. How often do you have a drink containing alcohol?: Monthly or less 2. How many drinks containing alcohol do you have on a typical day when you are drinking?: 1 or 2 3. How often do you have six or more drinks on one occasion?: Never Total Score: 1 Score Reviewed/Action Taken: Yes DEIRDRE-7 AMB Questionnaire DEIRDRE-7 Date DEIRDRE - 7 assessed: 12/30/24 Feeling nervous, anxious, or on edge: 0 = Not at all Not being able to stop or control worryin = Not at all Worrying too much about different things: 0 = Not at all Trouble relaxin = Not at all Being so restless that it is hard to sit still: 0 = Not at all Becoming easily annoyed or irritable: 0 = Not at all Feeling afraid as if something awful might happen: 0 = Not at all Total DEIRDRE-7 score (0-4 normal; 5-9 mild; 10-14 moderate; 15-21 severe): 0 Source: Developed by Drs. Marciano Yoder, Henrietta Brooks, Héctor Stinson and colleagues, with an educational jayme from [employer]. Physical exam (Primary Care) Vital Signs: Oxygen Delivery Method Room Air 12/30/24 15:19 BMI result Body Mass Index 23.9 Tobacco/Smoking Status: Tobacco use Status Tobacco use date assessed 08/11/24 08/11/24 12:54 Patient Tobacco Use Status Never used Tobacco 08/11/24 12:54 e-Cigarette/Vaping Use Never Used 08/11/24 12:54 Depression Screening Interpretation: Positive Depression Screening Follow-up: Existing condition and In treatment Thrive Assessment: Date of Thrive Assessment Date Thrive assessed 08/11/24 08/11/24 12:54 Currently or been in a relationship where the following occur: No concerns reported Const General: alert; No acute distress Eyes Conjunctivae: conjunctivae normal Resp Auscultation: clear to auscultation bilaterally Cardio Rate: regular rate Rhythm: regular rhythm GI Inspection: Yes normal to inspection Extrem General: Yes normal to inspection and No edema Coding Level of Care Code Est Pt Level 4 (20990) Diagnoses Mild intermittent asthma without complication J45.20 Asthma complication type: uncomplicated Asthma persistence: intermittent Asthma severity: mild Generalized anxiety disorder F41.1 Chest pain R07.9 Additional Codes PHQ-9 - 64483 - PHQ-9 Billing: Yes ([id number]) Assessment & Plan Assessment & Plan (1) Asthma: Code(s): J45.909 - Unspecified asthma, uncomplicated Category: Medical Qualifiers: Asthma complication type: uncomplicated Asthma persistence: intermittent Asthma severity: mild Qualified Code(s): J45.20 - Mild intermittent asthma, uncomplicated (2) Generalized anxiety disorder: Code(s): F41.1 - Generalized anxiety disorder Category: Medical (3) Chest pain: Code(s): R07.9 - Chest pain, unspecified Category: Medical Plan: Discussed with the patient regarding chest pains and the most common problems. Plan - Continue with the newly recommended asthma management plan, including the switch to Breo and the use of short-acting albuterol as needed for symptomatic relief. - Routine monitoring of asthma symptoms and periodic follow-up with pulmonary care as previously advised to assess medication efficacy and adjust treatment as necessary. - Ensure continued management of generalized anxiety disorder, acknowledging its potential impact on respiratory symptoms, though specific management details and interventions were not discussed in this visit. - Ongoing monitoring of liver function due to previous elevation in liver enzymes, albeit not discussed in detail during this visit. Orders: Orders ECG 12 lead EKG Today R07.9 - Chest pain, unspecified XR chest 2V Today R07.9 - Chest pain, unspecified Medications: Discontinued hydroxyzine HCl Discontinued Reason: Doctor's Order 25 mg PO BID PRN 60 tabs 1RF anxety sertraline Discontinued Reason: Patient no longer taking 50 mg PO DAILY 30 days 30 tabs 2RF
[2024-12-30 15:19] VITALS: BP 124/76; PULSE 82; O2SAT 98; BMI 23.9
== END 2024-12-30 16:02 | disposition home or self-care (01) ==
PROVIDERS: PCP Internal Medicine; Visit Provider Internal Medicine
DX: J45.20 Mild intermittent asthma, uncomplicated (principal); F41.1 Generalized anxiety disorder; R07.9 Chest pain, unspecified

== ENCOUNTER → 2024-12-30 16:11 | Outpatient (BNV) | payer OTHER, SELFPAY | PROVIDERS: PCP Internal Medicine; Visit Provider Radiology Diagnostic Radiology | DX: R07.9 Chest pain, unspecified (principal) | CPT/HCPCS: 71046 ==